=== PATIENT | female | born 1925 | race Caucasian/White ===

== ENCOUNTER 2016-08-30 13:22 | Inpatient (IN) | payer MEDICARE, BC ==
[2016-08-30] MEDS ORDERED: SODIUM CHLORIDE 0.9% 500 ML IV STA (13:34)
[2016-08-30] MEDS: SODIUM CHLORIDE 0.9% 1,000 ML IV STA ×2 (13:48→16:51)
--- NOTE | 2016-08-30 13:56 | ED ---
General Adult HPI - General Chief complaint: Weakness Stated complaint: LETHARGY Time Seen by Provider: 08/30/16 13:34 Source: EMS, RN notes reviewed, old records reviewed Mode of arrival: EMS Limitations: no limitations - History of Present Illness Initial comments: This is an 89-year-old female who ER for evaluation weakness, and transfer from [facility]. Patient's poor strain. Patient is brought in for evaluation of weakness, possible urinary tract infection. Patient is complex and complicated long medical history. Patient states feeling weak ever since waking up this morning no bowel pain, no headache, no nausea vomiting or diarrhea, no fevers - Related Data Home Medications Medication Instructions Recorded Confirmed Atenolol 25 mg PO DAILY 11/25/14 08/30/16 Atorvastatin [Lipitor] 20 mg PO HS 11/25/14 08/30/16 Levothyroxine Sodium [Synthroid] 75 mcg PO DAILY@0600 11/25/14 08/30/16 Risedronate Sodium [Actonel] 150 mg PO Q28D 11/25/14 08/30/16 hydrALAZINE HCL 25 mg PO BID 11/25/14 08/30/16 Dimethicone/Zinc Oxide [Inzo Zinc 1 applic TOPICAL DAILY 08/30/16 08/30/16 Oxide Barrier Cream] Gold Edge Body Powder 1 applic TOPICAL BID 08/30/16 08/30/16 Magnesium Hydroxide [Milk of 2,400 mg PO DAILY PRN 08/30/16 08/30/16 Magnesia] Previous Rx's Medication Instructions Recorded HYDROcodone/APAP 10-325MG [[place] 1 tab PO Q8HR PRN #40 tab 02/28/16 10-325] Zolpidem [Ambien] 5 mg PO HS #30 tab 02/28/16 Allergies Allergy/AdvReac Type Severity Reaction Status Date / Time No Known Allergies Allergy Verified 08/30/16 14:02 Review of Systems ROS Statement: Those systems with pertinent positive or pertinent negative responses have been documented in the HPI. ROS Other: All systems not noted in ROS Statement are negative. Past Medical History Past Medical History: Heart Failure, COPD, Deep Vein Thrombosis (DVT), Eye Disorder, Hearing Disorder / Deafness, Hyperlipidemia, Hypertension, Musculoskeletal Disorder, Pneumonia, Skin Disorder, Thyroid Disorder Additional Past Medical History / Comment(s): 12-28-14 slipped while putting on hip brace- dislocated rt hip. 11-25-14 uti(e coli) and also ecoli in blood. 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, rash from hip brace in the past History of Any Multi-Drug Resistant Organisms: ESBL Date of last positivie culture/infection: 02/29/16 MDRO Source:: URINE KL.PNEUMONIAE URINE Past Surgical History: Hysterectomy, Joint Replacement Additional Past Surgical History / Comment(s): Right Hip replacement and dislocation, wears hip splint, right knee surgery Additional Past Anesthesia/Blood Transfusion Reaction / Comment(s): patient takes a long time to wake up after anesthesia Past Psychological History: No Psychological Hx Reported Smoking Status: Never smoker Past Alcohol Use History: None Reported Past Drug Use History: None Reported - Past Family History Father Family Medical History: Myocardial Infarction ([place]) Additional Family Medical History / Comment(s): heart disease Mother Family Medical History: Hypertension, Myocardial Infarction ([place]) Additional Family Medical History / Comment(s): heart disease General Exam Limitations: no limitations General appearance: alert, in no apparent distress Head exam: Present: atraumatic, normocephalic, normal inspection Eye exam: Present: normal appearance, PERRL, EOMI. Absent: scleral icterus, conjunctival injection, periorbital swelling ENT exam: Present: normal exam, mucous membranes moist Neck exam: Present: normal inspection. Absent: tenderness, meningismus, lymphadenopathy Respiratory exam: Present: normal lung sounds bilaterally. Absent: respiratory distress, wheezes, rales, rhonchi, stridor Cardiovascular Exam: Present: regular rate, normal rhythm, normal heart sounds. Absent: systolic murmur, diastolic murmur, rubs, gallop, clicks GI/Abdominal exam: Present: soft, normal bowel sounds. Absent: distended, tenderness, guarding, rebound, rigid Extremities exam: Present: normal inspection, full ROM, normal capillary refill. Absent: tenderness, pedal edema, joint swelling, calf tenderness Back exam: Present: normal inspection Neurological exam: Present: alert, oriented X3, CN II-XII intact Psychiatric exam: Present: normal affect, normal mood Skin exam: Present: warm, dry, intact, normal color. Absent: rash Course Vital Signs 08/30/16 13:32 Temperature 99.4 F Pulse Rate 71 Respiratory 22 Rate Blood Pressure 190/84 O2 Sat by Pulse 92 L Oximetry - Reevaluation(s) Reevaluation #1: 08/30/16 15:16 patient still somnolent on exam, arousable and answers questions but goes back to sleep when not stimulated Medical Decision Making - Medical Decision Making 89 female ER for evaluation of altered mental status, weakness, hypoxia, patient has a pulmonary edema and infiltrates likely underlying pneumonia, elevated white count we'll start antibiotics - Lab Data Result diagrams: 08/30/16 13:55 08/30/16 13:55 Lab Results 08/30/16 08/30/16 08/30/16 Range/Units 13:55 13:55 13:55 WBC 14.3 H (3.8-10.6) k/uL RBC 4.01 (3.80-5.40) m/uL Hgb 12.5 (11.4-16.0) gm/dL Hct 39.7 (34.0-46.0) % MCV 99.1 (80.0-100.0) fL MCH 31.1 (25.0-35.0) pg MCHC 31.4 (31.0-37.0) g/dL RDW 14.1 (11.5-15.5) % Plt Count 171 (150-450) k/uL Neutrophils % 89 % Lymphocytes % 4 % Monocytes % 6 % Eosinophils % 0 % Basophils % 0 % Neutrophils # 12.7 H (1.3-7.7) k/uL Lymphocytes # 0.6 L (1.0-4.8) k/uL Monocytes # 0.8 (0-1.0) k/uL Eosinophils # 0.0 (0-0.7) k/uL Basophils # 0.0 (0-0.2) k/uL Hypochromasia Moderate PT (9.0-12.0) sec INR (<1.1) APTT (22.0-30.0) sec Sodium 142 (137-145) mmol/L Potassium 4.6 (3.5-5.1) mmol/L Chloride 101 (98-107) mmol/L Carbon Dioxide 34 H (22-30) mmol/L Anion Gap 7 mmol/L BUN 16 (7-17) mg/dL Creatinine 0.90 (0.52-1.04) mg/dL Est GFR (MDRD) Af Amer >60 (>60 ml/min/1.73 sqM) Est GFR (MDRD) Non-Af 59 (>60 ml/min/1.73 sqM) Glucose 137 H (74-99) mg/dL Calcium 9.6 (8.4-10.2) mg/dL Phosphorus 3.2 (2.5-4.5) mg/dL Magnesium 1.8 (1.6-2.3) mg/dL Total Bilirubin 1.0 (0.2-1.3) mg/dL AST 18 (14-36) U/L ALT 18 (9-52) U/L Alkaline Phosphatase 60 (38-126) U/L Total Creatine Kinase <20 L (30-135) U/L CK-MB (CK-2) 0.3 (0.0-2.4) ng/mL CK-MB (CK-2) Rel Index 0.0 Troponin I <0.012 (0.000-0.034) ng/mL Total Protein 7.0 (6.3-8.2) g/dL Albumin 3.5 (3.5-5.0) g/dL TSH 1.500 (0.465-4.680) mIU/L Urine Color Urine Appearance (Clear) Urine pH (5.0-8.0) Ur Specific [place] (1.001-1.035) Urine Protein (Negative) Urine Glucose (UA) (Negative) Urine Ketones (Negative) Urine Blood (Negative) Urine Nitrite (Negative) Urine Bilirubin (Negative) Urine Urobilinogen (<2.0) mg/dL Ur Leukocyte Esterase (Negative) Urine RBC (0-5) /hpf Urine WBC (0-5) /hpf Ur Squamous Epith Cells (0-4) /hpf Urine Bacteria (None) /hpf Urine Mucus (None) /hpf 08/30/16 08/30/16 Range/Units 13:55 13:55 WBC (3.8-10.6) k/uL RBC (3.80-5.40) m/uL Hgb (11.4-16.0) gm/dL Hct (34.0-46.0) % MCV (80.0-100.0) fL MCH (25.0-35.0) pg MCHC (31.0-37.0) g/dL RDW (11.5-15.5) % Plt Count (150-450) k/uL Neutrophils % % Lymphocytes % % Monocytes % % Eosinophils % % Basophils % % Neutrophils # (1.3-7.7) k/uL Lymphocytes # (1.0-4.8) k/uL Monocytes # (0-1.0) k/uL Eosinophils # (0-0.7) k/uL Basophils # (0-0.2) k/uL Hypochromasia PT 10.2 (9.0-12.0) sec INR 1.0 (<1.1) APTT 23.1 (22.0-30.0) sec Sodium (137-145) mmol/L Potassium (3.5-5.1) mmol/L Chloride (98-107) mmol/L Carbon Dioxide (22-30) mmol/L Anion Gap mmol/L BUN (7-17) mg/dL Creatinine (0.52-1.04) mg/dL Est GFR (MDRD) Af Amer (>60 ml/min/1.73 sqM) Est GFR (MDRD) Non-Af (>60 ml/min/1.73 sqM) Glucose (74-99) mg/dL Calcium (8.4-10.2) mg/dL Phosphorus (2.5-4.5) mg/dL Magnesium (1.6-2.3) mg/dL Total Bilirubin (0.2-1.3) mg/dL AST (14-36) U/L ALT (9-52) U/L Alkaline Phosphatase (38-126) U/L Total Creatine Kinase (30-135) U/L CK-MB (CK-2) (0.0-2.4) ng/mL CK-MB (CK-2) Rel Index Troponin I (0.000-0.034) ng/mL Total Protein (6.3-8.2) g/dL Albumin (3.5-5.0) g/dL TSH (0.465-4.680) mIU/L Urine Color Yellow Urine Appearance Clear (Clear) Urine pH 6.5 (5.0-8.0) Ur Specific [place] 1.009 (1.001-1.035) Urine Protein Negative (Negative) Urine Glucose (UA) Negative (Negative) Urine Ketones Negative (Negative) Urine Blood Negative (Negative) Urine Nitrite Negative (Negative) Urine Bilirubin Negative (Negative) Urine Urobilinogen <2.0 (<2.0) mg/dL Ur Leukocyte Esterase Moderate H (Negative) Urine RBC 6 H (0-5) /hpf Urine WBC 4 (0-5) /hpf Ur Squamous Epith Cells <1 (0-4) /hpf Urine Bacteria Moderate H (None) /hpf Urine Mucus Rare H (None) /hpf - Radiology Data Radiology results: report reviewed (Chest x-ray positive for bilateral pulmonary infiltrates increased from prior, pleural effusion), image reviewed Disposition Clinical Impression: Altered mental status, Dehydration, Hypoxia, Pulmonary infiltrates Disposition: ADMITTED IP TO THIS HOSP Condition: Fair Referrals: Mirta Collins MD [Primary Care Provider] - 1-2 days
[2016-08-30 14:11] LABS: Basophils % (A) 0 %; CH 30.7; CHCM 31.1; Eosinophils % (A) 0 %; HCT 39.7 % (34.0-46.0); HDW 3.04; HGB 12.5 gm/dL (11.4-16.0); Hypochromasia Moderate; Luc % (Auto) 1; Lymphocytes # (A) 0.6 k/uL (1.0-4.8); Lymphocytes % (A) 4 %; MCH 31.1 pg (25.0-35.0); MCHC 31.4 g/dL (31.0-37.0); MCV 99.1 fL (80.0-100.0); Mean Platelet Volume 6.8; Monocytes # (A) 0.8 k/uL (0-1.0); Monocytes % (A) 6 %; Neutrophils # (A) 12.7 k/uL (1.3-7.7); Neutrophils % (A) 89 %; RBC 4.01 m/uL (3.80-5.40); RDW 14.1 % (11.5-15.5); WBC 14.3 k/uL (3.8-10.6); WBC (Perox) 12.89
[2016-08-30 14:13] LABS: Appearance,Urine Clear (Clear); Bacteria,Urine Moderate /hpf; Bilirubin,Urine Negative (Negative); Glucose,Urine (UA) Negative (Negative); Ketones,Urine Negative (Negative); Leukocyte Esterase,Urine Moderate (Negative); Mucus,Urine Rare /hpf; Nitrite,Urine Negative (Negative); PH, Urine 6.5 (5.0-8.0); Particle Count 1700; Protein,Urine Negative (Negative); RBC,Urine 6 /hpf (0-5); Specific Gravity,Urine 1.009 (1.001-1.035); Squamous Epithelial Cell,Urine <1 /hpf (0-4); UA Billing (MACRO vs. MICRO) MICRO; Urobilinogen,Urine <2.0 mg/dL (<2.0); WBC,Urine 4 /hpf (0-5)
[2016-08-30 14:20] LABS: ALT 18 U/L (9-52); AST 18 U/L (14-36); Alkaline Phosphatase 60 U/L (38-126); Anion Gap 7 mmol/L; Blood Urea Nitrogen 16 mg/dL (7-17); Calcium 9.6 mg/dL (8.4-10.2); Carbon Dioxide 34 mmol/L (22-30); Chloride 101 mmol/L (98-107); Glucose 137 mg/dL (74-99); Magnesium 1.8 mg/dL (1.6-2.3); Non-African American GFR(MDRD) 59 (>60 ml/min/1.73 sqM); Phosphorous 3.2 mg/dL (2.5-4.5); Potassium 4.6 mmol/L (3.5-5.1); Sodium 142 mmol/L (137-145)
[2016-08-30 14:21] LABS: Partial Thromboplastin Time 23.1 sec (22.0-30.0); Prothrombin Time 10.2 sec (9.0-12.0)
[2016-08-30 14:34] LABS: Creatine Kinase <20 U/L (30-135)
--- NOTE | 2016-08-30 14:40 | XR ---
EXAMINATION TYPE: XR chest 2V DATE OF EXAM: 08/30/2016 2:20 PM COMPARISON: 02/28/2016 HISTORY: Weakness TECHNIQUE: Frontal and lateral views of the chest are obtained. FINDINGS: Heart is enlarged. There is pulmonary vascular congestion. Thoracic aorta is atheromatous. There are chest leads. There are patchy infiltrates in both lungs. IMPRESSION: There are increasing bilateral pulmonary infiltrates compared to last exam. Congestive h eart failure. The possibility of RDS should be considered.
[2016-08-30 14:46] LABS: Creatine Kinase MB 0.3 ng/mL (0.0-2.4); Troponin I <0.012 ng/mL (0.000-0.034)
[2016-08-30] MEDS ORDERED: LEVOFLOXACIN 750MG-D5W PMX 750 MG in DEXTROSE/WATER 1 150ML.BAG IVPB STA (15:12)
[2016-08-30] MEDS ORDERED: PNEUMONIA PROTOCOL UTILIZED 1 EACH MISC PO PRN (15:12)
[2016-08-30] MEDS ORDERED: PIPERACILLIN-TAZOBACTAM 3.375 GM in DEXTROSE/WATER 1 50ML.BAG IVPB STA (15:12)
[2016-08-30] MEDS: IPRATROPIUM-ALBUTEROL 3 ML NEB INHALATION SCH ×2 (15:33→18:41)
[2016-08-30] MEDS ORDERED: MAGNESIUM HYDROXIDE 2,400 MG/10 ML CUP PO PRN (18:32)
[2016-08-30] MEDS ORDERED: HYDROcodone/APAP 10-325MG 1 EACH TAB PO PRN (18:32)
[2016-08-30] MEDS ORDERED: ZOLPIDEM 5 MG TAB ONE (21:00)
[2016-08-31] MEDS: PIPERACILLIN-TAZOBACTAM 3.375 GM in DEXTROSE/WATER 1 50ML.BAG IVPB SCH ×2 (00:23→10:15)
[2016-08-31] MEDS: LEVOTHYROXINE 75 MCG TAB PO SCH (06:00)
[2016-08-31] MEDS: SODIUM CHLORIDE 0.9% 1,000 ML IV SCH ×4 (06:39→22:25)
[2016-08-31] MEDS: IPRATROPIUM-ALBUTEROL 3 ML NEB INHALATION SCH ×4 (07:39→20:48)
[2016-08-31] MEDS: hydrALAZINE HCL 25 MG TAB PO SCH ×3 (08:41→22:23)
[2016-08-31] MEDS: ATORVASTATIN 20 MG TAB PO SCH ×2 (08:41→22:22)
[2016-08-31] MEDS: ATENOLOL 25 MG TAB PO SCH (08:41)
[2016-08-31] MEDS: ENOXAPARIN 40 MG/0.4 ML SYRINGE SQ SCH (08:41)
[2016-08-31] MEDS: ZOLPIDEM 5 MG TAB PO SCH ×2 (08:41→22:22)
[2016-08-31] MEDS: ZINC OXIDE 20% OINT 28.4 GM TUBE TOPICAL SCH (08:42)
--- NOTE | 2016-08-31 10:10 | XR ---
EXAMINATION TYPE: XR chest 2V DATE OF EXAM: 08/31/2016 10:01 AM COMPARISON: 08/30/2016 HISTORY: Follow-up pneumonia FINDINGS: There are bilateral pleural effusions with cardiomegaly and bibasilar infiltrate. There is a diffuse interstitial pattern. Arthropathy of the shoulders and degenerative change of the spine noted. IMPRESSION: 1. Bilateral infiltrate and pleural effusion. Differential includes CHF versus pneumonia.
--- NOTE | 2016-08-31 14:06 | P.HPIM ---
History of Present Illness Chief Complaint: After mental status This is a 89-year-old female with complex past medical history noted below who presented to the emergency room from her snf after she was found confused and her mentation was not at baseline. She was very sleepy for the past few days and her orientation is getting worse. She is usually awake and oriented 3. Her daughter at bedside today. She was evaluated in the emergency room and was found to have evidence of underlying UTI. She is currently admitted to the hospital for further treatment. Her mentation is significantly better today. According to her daughter she is back to normal baseline. Review of Systems Review of system: 14 points review of systems were obtained and were negative except to what were mentioned in the HPI. Past Medical History Past Medical History: Heart Failure, COPD, Deep Vein Thrombosis (DVT), Eye Disorder, Hearing Disorder / Deafness, Hyperlipidemia, Hypertension, Musculoskeletal Disorder, Pneumonia, Skin Disorder, Thyroid Disorder Additional Past Medical History / Comment(s): 12-28-14 slipped while putting on hip brace- dislocated rt hip. 11-25-14 uti(e coli) and also ecoli in blood. 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, rash from hip brace in the past History of Any Multi-Drug Resistant Organisms: ESBL Date of last positivie culture/infection: 02/29/16 MDRO Source:: URINE KL.PNEUMONIAE URINE Past Surgical History: Hysterectomy, Joint Replacement Additional Past Surgical History / Comment(s): Right Hip replacement and dislocation, wears hip splint, right knee surgery Additional Past Anesthesia/Blood Transfusion Reaction / Comment(s): patient takes a long time to wake up after anesthesia Past Psychological History: No Psychological Hx Reported Smoking Status: Unknown if ever smoked Past Alcohol Use History: None Reported Past Drug Use History: None Reported - Past Family History Father Family Medical History: Myocardial Infarction ([place]) Additional Family Medical History / Comment(s): heart disease Mother Family Medical History: Hypertension, Myocardial Infarction ([place]) Additional Family Medical History / Comment(s): heart disease Medications and Allergies Home Medications Medication Instructions Recorded Confirmed Type Atenolol 25 mg PO DAILY 11/25/14 08/30/16 History Atorvastatin [Lipitor] 20 mg PO HS 11/25/14 08/30/16 History Levothyroxine Sodium [Synthroid] 75 mcg PO DAILY@0600 08/08/15 05/13/17 History Risedronate Sodium [Actonel] 150 mg PO Q28D 11/25/14 08/30/16 History hydrALAZINE HCL 25 mg PO BID 11/25/14 08/30/16 History Dimethicone/Zinc Oxide [Inzo Zinc 1 applic TOPICAL DAILY 08/30/16 08/30/16 History Oxide Barrier Cream] Gold Edge Body Powder 1 applic TOPICAL BID 08/30/16 08/30/16 History Magnesium Hydroxide [Milk of 2,400 mg PO DAILY PRN 08/30/16 08/30/16 History Magnesia] Allergies Allergy/AdvReac Type Severity Reaction Status Date / Time No Known Allergies Allergy Verified 08/30/16 14:02 Physical Exam Vitals: Vital Signs Temp Pulse Pulse Resp BP BP Pulse Ox 08/31/16 11:25 68 08/31/16 11:12 68 08/31/16 08:00 68 18 08/31/16 07:53 68 08/31/16 07:40 68 92 L 08/31/16 07:00 97.9 F 68 18 152/67 95 08/30/16 23:00 98.3 F 63 16 116/65 91 L 08/30/16 18:50 67 16 08/30/16 18:42 67 16 08/30/16 18:25 63 18 08/30/16 16:46 99.3 F 63 18 135/64 94 L 08/30/16 16:00 78 16 08/30/16 15:36 99.8 F H 62 16 174/67 97 Intake and Output 08/30/16 08/31/16 08/31/16 22:59 06:59 14:59 Intake Total 350 590 240 Balance 350 590 240 Intake: Intake, IV Titration 350 Amount Sodium Chloride 0.9% 1, 350 000 ml @ 100 mls/hr IV . Q10H [facility] Rx#:[id number] Oral 590 240 Other: Voiding Method Bedside Commode Bedside Commode # Voids 2 3 General: The patient is awake and alert, in no distress Eye: there is normal conjunctiva bilaterally. Neck: The neck is supple, there is no JVD. Cardiovascular: Normal S1-S2, no S3-S4, no murmurs. Respiratory: Lungs clear to auscultation bilaterally Gastrointestinal: Abdomen is soft, nontender Musculoskeletal: There is no pedal edema. There is a large right hip brace in place Neurological:. Speech is normal. Skin: Skin is warm and dry Results CBC & Chem 7: 08/30/16 13:55 08/30/16 13:55 Thrombosis Risk Factor Assmnt - Choose All That Apply Other Risk Factors: Yes Each Risk Factor Represents 3 Points: History of DVT/PE Thrombosis Risk Factor Assessment Total Risk Factor Score: 3 Thrombosis Risk Factor Assessment Level: Moderate Risk Assessment and Plan Plan: #1 urinary tract infection with history of ESBL: Currently on Levaquin. Consult infectious disease. Awaiting urine culture. 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 Continue current regimen. Awaiting urine culture. Repeat lab work in the morning.
[2016-08-31] MEDS ORDERED: LEVOFLOXACIN 750MG-D5W PMX 750 MG in DEXTROSE/WATER 1 150ML.BAG IVPB SCH (16:00)
[2016-09-01] MEDS: LEVOTHYROXINE 75 MCG TAB PO SCH (06:19)
[2016-09-01 08:51] LABS: Basophils % (A) 1 %; CH 30.3; CHCM 30.6; Eosinophils % (A) 1 %; HCT 32.2 % (34.0-46.0); HDW 3.08; HGB 10.1 gm/dL (11.4-16.0); Hypochromasia Moderate; Luc # (Auto) 0.11; Luc % (Auto) 2; Lymphocytes # (A) 0.6 k/uL (1.0-4.8); Lymphocytes % (A) 11 %; MCHC 31.3 g/dL (31.0-37.0); MCV 99.2 fL (80.0-100.0); Mean Platelet Volume 6.9; Monocytes # (A) 0.4 k/uL (0-1.0); Monocytes % (A) 7 %; Neutrophils # (A) 4.7 k/uL (1.3-7.7); Neutrophils % (A) 80 %; RBC 3.25 m/uL (3.80-5.40); RDW 14.1 % (11.5-15.5); WBC 5.9 k/uL (3.8-10.6); WBC (Perox) 5.84
[2016-09-01] MEDS: ENOXAPARIN 40 MG/0.4 ML SYRINGE SQ SCH (08:55)
[2016-09-01] MEDS: hydrALAZINE HCL 25 MG TAB PO SCH ×2 (08:55→20:53)
[2016-09-01] MEDS: ATENOLOL 25 MG TAB PO SCH (08:55)
[2016-09-01] MEDS: ZINC OXIDE 20% OINT 28.4 GM TUBE TOPICAL SCH (08:56)
[2016-09-01 09:17] LABS: Anion Gap 9 mmol/L; Blood Urea Nitrogen 16 mg/dL (7-17); Calcium 8.7 mg/dL (8.4-10.2); Carbon Dioxide 26 mmol/L (22-30); Chloride 107 mmol/L (98-107); Glucose 95 mg/dL (74-99); Non-African American GFR(MDRD) >60 (>60 ml/min/1.73 sqM); Sodium 142 mmol/L (137-145)
[2016-09-01] MEDS: IPRATROPIUM-ALBUTEROL 3 ML NEB INHALATION SCH ×4 (10:00→19:54)
--- NOTE | 2016-09-01 10:37 | P.PN ---
Subjective Patient presented with altered mental status changes and found to have a urinary tract infection. Has a history of ESBL UTIs. Currently on Rocephin. Urine culture growing gram-negative bacilli. Patient awake and alert in bed. Reports feeling better. Denies any chest pain or shortness of breath. Denies any nausea or vomiting. Reports having a bowel movement this morning. Denies any burning with urination. Denies any cough. She reports being on 2 L nasal cannula at home. She is from a correction. Objective - Vital Signs Vital signs: Vital Signs Temp 98.3 F 09/01/16 07:00 Pulse 68 09/01/16 07:00 Resp 18 09/01/16 07:00 BP 179/81 09/01/16 07:00 Pulse Ox 96 09/01/16 07:00 Intake & Output 08/31/16 09/01/16 09/01/16 18:59 06:59 18:59 Intake Total 240 2020 Balance 240 2020 Weight 90.718 kg Intake: Intake, IV Titration 1300 Amount Sodium Chloride 0.9% 1, 1200 000 ml @ 100 mls/hr IV . Q10H [facility] Rx#:[id number] cefTRIAXone 1,000 mg In 100 Sodium Chloride 0.9% 50 ml @ 100 mls/hr IVPB Q24H [facility] Rx#:[id number] Oral 240 720 Other: Voiding Method Bedside Commode Bedside Commode # Voids 3 3 - Exam Head normocephalic Neck supple Lungs clear to auscultation bilaterally no wheezing or crackles Heart regular rate and rhythm S1-S2, no rub or gallop Abdomen is soft nontender nondistended positive bowel sounds no hepatosplenomegaly Extremities no edema Neuro alert and orientated to to her name and place. - Labs CBC & Chem 7: 09/01/16 08:10 09/01/16 08:10 Labs: Abnormal Lab Results - Last 24 Hours (Table) 09/01/16 Range/Units 08:10 RBC 3.25 L (3.80-5.40) m/uL Hgb 10.1 L (11.4-16.0) gm/dL Hct 32.2 L (34.0-46.0) % Lymphocytes # 0.6 L (1.0-4.8) k/uL Microbiology - Last 24 Hours (Table) 08/30/16 15:25 Blood Culture - Preliminary Blood No Growth after 24 hours Assessment and Plan Plan: 1. Altered mental status changes likely related to a metabolic encephalopathy secondary to UTI. 2. UTI: Urine culture growing gram-negative bacilli. 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 Await final urine culture. Infectious disease is following. Continue with IV Rocephin 3. Essential hypertension: Blood pressure elevated this morning. She is receiving her home blood pressure pills also will Hep-Lock IV fluids and have blood pressure repeated 4. Hyperlipidemia 5. Hypothyroidism 6. Morbid obesity 7. Physical therapy consulted to increase activity 8. Bilateral infiltrate and pleural effusion noted on chest x-ray. Patient reports no cough or shortness of breath. Doubt pneumonia. BNP level not significant elevated. No evidence of a CHF exacerbation. At this time Hep- Lock IV fluids. And monitor. I performed an examination of the patient and discussed their management with the physician Service Secretary. I have reviewed the Physician Service Secretary's notes and agree with the documented findings and plan of care
[2016-09-01] MEDS: SODIUM CHLORIDE 0.9% 1,000 ML IV SCH (13:40)
--- NOTE | 2016-09-01 13:59 | CONS ---
DATE OF CONSULTATION: 08/31/2016 REASON FOR CONSULTATION: Urinary tract infection with a history of ESBL, and Klebsiella. HISTORY OF PRESENT ILLNESS: The patient is an 89 -year-old female who is a resident of assisted living with history of recurrent urinary tract infection. She did have Klebsiella pneumoniae ESBL in February 2016 as well as an E. coli. Patient was brought into the ER at [facility] with mental status changes. Apparently the patient was noticed to be weak and tired and lethargic, not taking her food part of the fpc. Patient subsequently was evaluated by the ER physician. The patient noted to have a positive slightly elevated white count and low grade fever. The patient was given a dose of Zosyn and subsequently switched over to Levaquin and admitted to the hospital and ID was consulted for further recommendation regarding antibiotic therapy. At the time of my evaluation this afternoon, the patient is back to her baseline. She knows she is in the hospital. The patient denies having any headache. Denies any chest pain or shortness of breath. Occasional cough. No abdominal pain. No diarrhea. Patient did have incontinence of urine but no other worsening symptoms. The patient apparently with low blood pressure upon arrival to the ER that seems to have improved. REVIEW OF SYSTEMS: CONSTITUTIONAL: Positive for weakness. No fever. EYES: No complaint. ENT: No complaint. RESPIRATORY: No complaint. CARDIOVASCULAR: No complaint. GENITOURINARY: As per HPI. GASTROINTESTINAL: No complaint. MUSCULOSKELETAL: No complaint. INTEGUMENTARY: No complaint. PSYCHOLOGIC: No complaint. ENDOCRINE: No complaint. GASTROINTESTINAL: No complaint. NEUROLOGIC: No complaint. Past medical history is significant for hypertension, hyperlipidemia, pneumonia, hypothyroidism, COPD, DVT , heart failure, history of Guillian [place] syndrome, history of recurrent UTIs with ESBL Klebsiella in February 2016. PAST SURGICAL HISTORY: Hysterectomy and joint replacement. SOCIAL HISTORY: No history of smoking, drinking, or drug use. FAMILY HISTORY: Father with history of PA. Mother with history of hypertension and PA. ALLERGIES: No known drug allergies. Medications currently include the patient is on: 1. DuoNeb. 2. Tenormin. 3. Lipitor. 4. Lovenox. 5. Hydralazine. 6. Levofloxacin. 7. Zinc oxide. 8. Ambien. On examination, blood pressure is 117/58 with a pulse of 58, temperature is 97.9, T-max of 99.8. She is 95% on 4 L nasal cannula. General description is an elderly female, lying in bed in no distress. No tachypnea or accessory muscle of respiration use. HEENT examination shows no pallor or scleral icterus. Oral mucous membranes dry. NECK: Trachea central. There is no thyromegaly. LUNGS: Unlabored breathing. Clear to auscultation anteriorly. No wheeze or crackle. HEART: S1, S2 regular rate and rhythm. ABDOMEN: Soft, no tenderness noted. No guarding or rigidity. EXTREMITIES: No edema of the feet. SKIN EXAMINATION: No rashes. No mass palpable. NEUROLOGICAL: The patient is awake, alert, oriented x3. Mood affect normal. LABS: Hemoglobin is 12.5, white count of 14.3 with a BUN of 16, creatinine 0.90, white count has been normal. Liver enzymes are normal. Urine is positive with moderate leukocyte esterase, only 4 WBC and moderate bacteria. Blood culture currently pending showing gram negative bacilli. DIAGNOSTIC IMPRESSION AND PLAN: The patient admitted to the hospital with mental status changes, slightly multifactorial, likely urinary tract infection from enteric gram-negative in a patient who did have improvement on the Zosyn and Levaquin, could be more likely an E. coli that was sensitive to pathogen and not at an ESBL pathogen. However, risk of resistant pathogen still in this elderly patient with recurrent urinary tract infection. PLAN: 1. Discontinue Levaquin. 2. Will start the patient on Rocephin 1 gram IV piggyback daily. 3. Will follow-up on the clinical condition and cultures to further adjust medications if needed. Thank you for the consultation. Will follow the patient along with you. was present at the bedside. All her questions were answered. SHANNEN
--- NOTE | 2016-09-01 18:48 | PN ---
DATE OF SERVICE: 09/01/2016 REASON FOR FOLLOW-UP: Follow-up is urinary tract infection. INTERVAL HISTORY: The patient is afebrile. She is more awake, she is breathing comfortably. Denies any significant chest pain, cough, no abdominal pain or any diarrhea. On examination, blood pressure is 179/80 with a pulse of 68, temperature 98.3. She is 96% on 2 L nasal cannula. General description is an elderly female lying in bed in no distress. RESPIRATORY SYSTEM: Unlabored breathing. Clear to auscultation anteriorly. HEART: S1, S2, regular rate and rhythm. ABDOMEN: Soft. No tenderness. LABS: White count normal at 5.9. Urine showing gram-negative with ID and sensitivities pending. DIAGNOSTIC IMPRESSION AND PLAN: Patient admitted to hospital with mental status changes with possible complaint of urinary tract infection. Urine showing a gram-negative with a previous history of ESBL, though she responded to Rocephin, hence that will be continued, waiting for the final ID of the pathogen to determine discharge antibiotics. Continue supportive care. SHANNEN
[2016-09-01 20:02] LABS: Appearance,Urine Clear (Clear); Bacteria,Urine Rare /hpf; Bilirubin,Urine Negative (Negative); Glucose,Urine (UA) Negative (Negative); Ketones,Urine Negative (Negative); Leukocyte Esterase,Urine Moderate (Negative); Mucus,Urine Rare /hpf; Nitrite,Urine Negative (Negative); PH, Urine 6.5 (5.0-8.0); Particle Count 1861; Protein,Urine Trace (Negative); RBC,Urine 4 /hpf (0-5); UA Billing (MACRO vs. MICRO) MICRO; Urobilinogen,Urine <2.0 mg/dL (<2.0); WBC,Urine 9 /hpf (0-5)
[2016-09-01] MEDS: ATORVASTATIN 20 MG TAB PO SCH (20:53)
[2016-09-02] MEDS: ZOLPIDEM 5 MG TAB PO SCH ×2 (00:29→20:45)
[2016-09-02] MEDS: LEVOTHYROXINE 75 MCG TAB PO SCH (06:29)
[2016-09-02] MEDS: hydrALAZINE HCL 25 MG TAB PO SCH ×2 (07:24→20:45)
[2016-09-02] MEDS: ATENOLOL 25 MG TAB PO SCH (07:25)
[2016-09-02] MEDS: ENOXAPARIN 40 MG/0.4 ML SYRINGE SQ SCH (07:25)
[2016-09-02] MEDS: ZINC OXIDE 20% OINT 28.4 GM TUBE TOPICAL SCH (07:25)
[2016-09-02 09:28] LABS: Basophils % (A) 0 %; CH 30.3; CHCM 30.6; Eosinophils # (A) 0.1 k/uL (0-0.7); Eosinophils % (A) 1 %; HCT 34.1 % (34.0-46.0); HDW 3.04; HGB 10.3 gm/dL (11.4-16.0); Hypochromasia Moderate; Luc # (Auto) 0.07; Luc % (Auto) 1; Lymphocytes # (A) 0.6 k/uL (1.0-4.8); Lymphocytes % (A) 10 %; MCH 30.1 pg (25.0-35.0); MCHC 30.3 g/dL (31.0-37.0); MCV 99.4 fL (80.0-100.0); Mean Platelet Volume 7.2; Monocytes # (A) 0.3 k/uL (0-1.0); Monocytes % (A) 4 %; Neutrophils % (A) 84 %; RBC 3.43 m/uL (3.80-5.40); RDW 14.2 % (11.5-15.5); WBC (Perox) 5.62
[2016-09-02 09:42] LABS: Anion Gap 6 mmol/L; Blood Urea Nitrogen 13 mg/dL (7-17); Calcium 8.9 mg/dL (8.4-10.2); Carbon Dioxide 30 mmol/L (22-30); Chloride 107 mmol/L (98-107); Glucose 133 mg/dL (74-99); Non-African American GFR(MDRD) >60 (>60 ml/min/1.73 sqM); Sodium 143 mmol/L (137-145)
[2016-09-02] MEDS: IPRATROPIUM-ALBUTEROL 3 ML NEB INHALATION SCH ×4 (09:44→20:44)
[2016-09-02] MEDS: ERTAPENEM 1 GM in SODIUM CHLORIDE 0.9% 50 ML IVPB SCH (11:39)
--- NOTE | 2016-09-02 13:38 | P.PN ---
Subjective Patient presented with altered mental status changes and found to have a urinary tract infection. Has a history of ESBL UTIs. Currently on Ertapenem per infectious disease recommendation. Urine culture growing gram-negative bacilli, Enterobacter Aerogens Patient awake and alert in bed. Reports feeling better. Denies any chest pain or shortness of breath. Denies any nausea or vomiting. Reports having a bowel movement this morning. Denies any burning with urination. Denies any cough. She reports being on 2 L nasal cannula at home. She is from a residential. Objective - Vital Signs Vital signs: Vital Signs Temp 98.3 F 09/02/16 07:00 Pulse 76 09/02/16 12:06 Resp 20 09/02/16 07:58 BP 151/65 09/02/16 07:00 Pulse Ox 92 L 09/02/16 07:00 Intake & Output 09/01/16 09/02/16 09/02/16 18:59 06:59 18:59 Intake Total 400 540 240 Balance 400 540 240 Weight 104 kg Intake: Intake, IV Titration 400 Amount Sodium Chloride 0.9% 1, 400 000 ml @ 100 mls/hr IV . Q10H [facility] Rx#:[id number] Oral 540 240 Other: Voiding Method Bedside Commode Bedside Commode Bedside Commode # Voids 2 1 2 - Exam In general patient is alert and oriented in no apparent distress HEENT head normocephalic and atraumatic Neck is supple no JVD no goiter no lymphadenopathy Chest exam reveals a few scattered crackles no wheezing Cardiac exam reveals regular heart sounds no gallops no murmurs Abdomen is soft nontender no organomegaly Extremity exam reveals no edema no cyanosis or clubbing - Labs CBC & Chem 7: 09/02/16 08:37 09/02/16 08:37 Labs: Abnormal Lab Results - Last 24 Hours (Table) 09/01/16 09/02/16 09/02/16 Range/Units 19:45 08:37 08:37 RBC 3.43 L (3.80-5.40) m/uL Hgb 10.3 L (11.4-16.0) gm/dL MCHC 30.3 L (31.0-37.0) g/dL Lymphocytes # 0.6 L (1.0-4.8) k/uL Glucose 133 H (74-99) mg/dL Urine Protein Trace H (Negative) Ur Leukocyte Esterase Moderate H (Negative) Urine WBC 9 H (0-5) /hpf Urine Bacteria Rare H (None) /hpf Urine Mucus Rare H (None) /hpf Microbiology - Last 24 Hours (Table) 09/01/16 19:45 Urine Culture - Preliminary Urine,Catheterized 08/30/16 13:55 Urine Culture - Final Urine,Catheterized Enterobacter aerogenes 08/30/16 15:25 Blood Culture - Preliminary Blood No Growth after 48 hours Assessment and Plan Plan: #1 urinary tract infection with history of ESBL: Currently on Ertapenem. Consult infectious disease. 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
--- NOTE | 2016-09-02 16:53 | PN ---
DATE OF SERVICE: 09/02/2016 REASON FOR FOLLOWUP: Urinary tract infection. INTERVAL HISTORY: The patient is afebrile. She is currently breathing comfortably. Denies significant chest pain or cough. No abdominal pain or any diarrhea. On examination, blood pressure 151/65 with a pulse of 66, temperature 98.3. She is 92% on 2 L nasal cannula. General description is an elderly female lying in bed in no distress. RESPIRATORY SYSTEM: Unlabored breathing. Clear to auscultation anteriorly. HEART: S1, S2. Regular rate and rhythm. ABDOMEN: Soft. No tenderness. LABS: Hemoglobin 10.3, white count 6.0 with a BUN of 13, creatinine 0.85. We did take another UA yesterday with straight catheter which shows moderate leukocyte esterase and some pyuria. DIAGNOSTIC IMPRESSION AND PLAN: Patient with urinary tract infection. Urine with [id number]-qsyrcdman enterobacter. Antibiotics were adjusted to Invanz 1 gram daily. That will be continued while waiting for the repeat culture to finalize. Will treat it more likely as a mild cystitis with a 3-day course, which should be enough, especially if the repeat urine cultures are negative, and will avoid a PICC line for outpatient IV antibiotic therapy.
[2016-09-02] MEDS: ATORVASTATIN 20 MG TAB PO SCH (20:45)
[2016-09-03] MEDS: LEVOTHYROXINE 75 MCG TAB PO SCH (06:47)
[2016-09-03] MEDS: IPRATROPIUM-ALBUTEROL 3 ML NEB INHALATION SCH ×4 (07:41→19:37)
[2016-09-03] MEDS: ERTAPENEM 1 GM in SODIUM CHLORIDE 0.9% 50 ML IVPB SCH (08:07)
[2016-09-03] MEDS: hydrALAZINE HCL 25 MG TAB PO SCH ×2 (08:07→22:03)
[2016-09-03] MEDS: ATENOLOL 25 MG TAB PO SCH (08:07)
[2016-09-03] MEDS: ZINC OXIDE 20% OINT 28.4 GM TUBE TOPICAL SCH (08:08)
[2016-09-03] MEDS: ENOXAPARIN 40 MG/0.4 ML SYRINGE SQ SCH (08:08)
[2016-09-03 09:34] LABS: Basophils % (A) 1 %; CH 30.1; Eosinophils # (A) 0.1 k/uL (0-0.7); Eosinophils % (A) 2 %; HCT 33.7 % (34.0-46.0); HDW 2.88; HGB 10.2 gm/dL (11.4-16.0); Hypochromasia Marked; Luc # (Auto) 0.07; Luc % (Auto) 2; Lymphocytes # (A) 0.8 k/uL (1.0-4.8); Lymphocytes % (A) 15 %; MCH 30.4 pg (25.0-35.0); MCHC 30.2 g/dL (31.0-37.0); MCV 100.6 fL (80.0-100.0); Macrocytosis Slight; Mean Platelet Volume 6.9; Monocytes # (A) 0.3 k/uL (0-1.0); Monocytes % (A) 5 %; Neutrophils # (A) 3.9 k/uL (1.3-7.7); Neutrophils % (A) 76 %; RBC 3.35 m/uL (3.80-5.40); RDW 14.5 % (11.5-15.5); WBC 5.1 k/uL (3.8-10.6); WBC (Perox) 5.27
[2016-09-03 10:09] LABS: Anion Gap 6 mmol/L; Blood Urea Nitrogen 13 mg/dL (7-17); Calcium 9.1 mg/dL (8.4-10.2); Carbon Dioxide 29 mmol/L (22-30); Chloride 107 mmol/L (98-107); Glucose 95 mg/dL (74-99); Non-African American GFR(MDRD) >60 (>60 ml/min/1.73 sqM); Potassium 4.3 mmol/L (3.5-5.1); Sodium 142 mmol/L (137-145)
--- NOTE | 2016-09-03 11:19 | XR ---
EXAMINATION TYPE: XR chest 2V DATE OF EXAM: 09/03/2016 11:02 AM COMPARISON: Chest x-ray from 3 days ago. HISTORY: Infiltrates progress study. TECHNIQUE: Frontal and lateral views of the chest are obtained. FINDINGS: Exam suboptimal secondary to patient's large body habitus. Cardiac silhouette size is stab le and mildly enlarged with atherosclerotic thoracic aorta. There are persistent bilateral perihilar opacities. No large pleural effusion or pneumothorax is seen currently. Degenerative change both shou lders at the glenohumeral joints is noted. IMPRESSION: Persistent bilateral perihilar edema and/or infiltrates and cardiomegaly. Favor CHF exac erbation over central multifocal pneumonia.
--- NOTE | 2016-09-03 15:34 | PN ---
DATE OF SERVICE: 09/03/2016 Reason for follow-up is gram-negative urinary tract infection with Enterobacter. INTERVAL HISTORY: The patient is afebrile. She is feeling better. Breathing comfortably. Denies significant chest pain. Occasional cough. No abdominal pain. On examination, blood pressure 155/55 with a pulse of 69, temperature 98.8. She is 94% on 3 liters nasal cannula. General description is an elderly female, lying in bed in no distress. RESPIRATORY SYSTEM: Unlabored breathing. Decreased breath sounds at the base. No wheeze. HEART: S1, S2. Regular rate and rhythm. ABDOMEN: Soft. No tenderness. LABS: Hemoglobin 10.2, white count 5.1. BUN of 13, creatinine 0.84. Repeat urine culture so far negative. DIAGNOSTIC IMPRESSION AND PLAN: Patient with Enterobacter aeruginosa urinary tract infection with resistant pathogen. She is currently on Invanz and that will be continued while waiting for the repeat to be finalized. If the repeat urine is repeated would recommend discontinuation of the Invanz and no antibiotic on discharge. Family present at beside. Their questions were answered.
--- NOTE | 2016-09-03 17:55 | P.PN ---
Subjective Patient presented with altered mental status changes and found to have a urinary tract infection. Has a history of ESBL UTIs. Currently on Ertapenem per infectious disease recommendation. Urine culture growing gram-negative bacilli, Enterobacter Aerogens Patient awake and alert in bed. Reports feeling better. Denies any chest pain or shortness of breath. Denies any nausea or vomiting. Reports having a bowel movement this morning. Denies any burning with urination. Denies any cough. She reports being on 2 L nasal cannula at home. She is from a longterm. Objective - Vital Signs Vital signs: Vital Signs Temp 98.8 F 09/03/16 07:00 Pulse 69 09/03/16 15:01 Resp 20 09/03/16 15:01 BP 176/72 09/03/16 15:00 Pulse Ox 93 L 09/03/16 15:00 Intake & Output 09/02/16 09/03/16 09/03/16 18:59 06:59 18:59 Intake Total 240 480 240 Balance 240 480 240 Weight 103 kg Intake: Oral 240 480 240 Other: Voiding Method Bedside Commode Bedside Commode Bedside Commode # Voids 2 2 2 # Bowel Movements 1 - Exam In general patient is alert and oriented in no apparent distress HEENT head normocephalic and atraumatic Neck is supple no JVD no goiter no lymphadenopathy Chest exam reveals a few scattered crackles no wheezing Cardiac exam reveals regular heart sounds no gallops no murmurs Abdomen is soft nontender no organomegaly Extremity exam reveals no edema no cyanosis or clubbing - Labs CBC & Chem 7: 09/03/16 08:17 09/03/16 08:17 Labs: Abnormal Lab Results - Last 24 Hours (Table) 09/03/16 Range/Units 08:17 RBC 3.35 L (3.80-5.40) m/uL Hgb 10.2 L (11.4-16.0) gm/dL Hct 33.7 L (34.0-46.0) % MCV 100.6 H (80.0-100.0) fL MCHC 30.2 L (31.0-37.0) g/dL Lymphocytes # 0.8 L (1.0-4.8) k/uL Microbiology - Last 24 Hours (Table) 08/30/16 15:25 Blood Culture - Preliminary Blood No Growth after 96 hours 09/01/16 19:45 Urine Culture - Final Urine,Catheterized Assessment and Plan Plan: #1 urinary tract infection with history of ESBL: Currently on Ertapenem. Consult infectious disease. 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 improving gradually
[2016-09-03] MEDS: ATORVASTATIN 20 MG TAB PO SCH (22:04)
[2016-09-03] MEDS: ZOLPIDEM 5 MG TAB PO SCH (22:08)
[2016-09-04] MEDS: LEVOTHYROXINE 75 MCG TAB PO SCH (05:19)
[2016-09-04 08:10] LABS: Basophils % (A) 1 %; CH 30.1; Eosinophils # (A) 0.1 k/uL (0-0.7); Eosinophils % (A) 3 %; HCT 34.9 % (34.0-46.0); HGB 10.5 gm/dL (11.4-16.0); Hypochromasia Marked; Luc # (Auto) 0.08; Luc % (Auto) 2; Lymphocytes # (A) 0.8 k/uL (1.0-4.8); Lymphocytes % (A) 16 %; MCH 30.4 pg (25.0-35.0); MCHC 30.1 g/dL (31.0-37.0); MCV 100.9 fL (80.0-100.0); Macrocytosis Slight; Mean Platelet Volume 7.3; Monocytes # (A) 0.2 k/uL (0-1.0); Monocytes % (A) 5 %; Neutrophils # (A) 3.7 k/uL (1.3-7.7); Neutrophils % (A) 74 %; RBC 3.45 m/uL (3.80-5.40); RDW 14.4 % (11.5-15.5); WBC (Perox) 5.34
[2016-09-04 08:19] LABS: ALT 20 U/L (9-52); AST 19 U/L (14-36); Alkaline Phosphatase 48 U/L (38-126); Anion Gap 6 mmol/L; Blood Urea Nitrogen 14 mg/dL (7-17); Calcium 9.1 mg/dL (8.4-10.2); Carbon Dioxide 30 mmol/L (22-30); Chloride 105 mmol/L (98-107); Glucose 95 mg/dL (74-99); Non-African American GFR(MDRD) >60 (>60 ml/min/1.73 sqM); Potassium 4.2 mmol/L (3.5-5.1); Sodium 141 mmol/L (137-145); Total Bilirubin 0.7 mg/dL (0.2-1.3); Total Protein 6.3 g/dL (6.3-8.2)
[2016-09-04] MEDS: ENOXAPARIN 40 MG/0.4 ML SYRINGE SQ SCH (08:39)
[2016-09-04] MEDS: ERTAPENEM 1 GM in SODIUM CHLORIDE 0.9% 50 ML IVPB SCH (08:39)
[2016-09-04] MEDS: hydrALAZINE HCL 25 MG TAB PO SCH ×2 (08:39→21:52)
[2016-09-04] MEDS: ZINC OXIDE 20% OINT 28.4 GM TUBE TOPICAL SCH (08:39)
[2016-09-04] MEDS: ATENOLOL 25 MG TAB PO SCH (08:40)
[2016-09-04] MEDS: IPRATROPIUM-ALBUTEROL 3 ML NEB INHALATION SCH ×4 (08:45→21:07)
--- NOTE | 2016-09-04 11:37 | ECHOF ---
Referral Reason:check EF MEASUREMENTS -------- HEIGHT: 165.1 cm WEIGHT: 105.7 kg BP: 133/68 RVIDd: 2.9 cm (< 3.3) IVSd: 1.7 cm (0.6 - 1.1) LVIDd: 3.3 cm (3.9 - 5.3) LVPWd: 1.4 cm (0.6 - 1.1) IVSs: 2.0 cm LVIDs: 1.7 cm LVPWs: 1.7 cm LAESV Index (A-L): 16.40 ml/m Ao Diam: 2.7 cm (2.0 - 3.7) AV Cusp: 0.8 cm (1.5 - 2.6) LA Diam: 3.0 cm (2.7 - 3.8) MV EXCURSION: 6.638 mm (> 18.000) MV EF SLOPE: 27 mm/s (70 - 150) EPSS: 0.9 cm MV E Ruddy: 1.29 m/s MV DecT: 308 ms MV A Ruddy: 1.45 m/s MV E/A Ratio: 0.89 AV maxP.49 mmHg AV meanP.32 mmHg RAP: 5.00 mmHg RVSP: 72.99 mmHg FINDINGS -------- Sinus rhythm. This was a technically adequate study. There is moderate concentric left ventricular hypertrophy. Overall left ventricular systolic function is normal with, an EF between 60 - 65 %. The right ventricle is normal in size and function. Normal LA size by volume 22+/-6 ml/m2. RA appears enlarged. There is no evidence of aortic regurgitation. Moderate aortic stenosis with peak/mean pressure gradient of 31.49mmHg / 19.32mmHg, the aortic valve area by continuity equation is 1.3cm. The mitral valve leaflets are mildly thickened. Mild mitral annular calcification present. There is trace to mild mitral regurgitation. Wglx-or-cbpuhujw tricuspid regurgitation present. There is severe pulmonary hypertension. The right ventricular systolic pressure, as measured by Doppler, is 72.99mmHg. The pulmonic valve was not well visualized. The aortic root size is normal. Echo free space may represent effusion or a pericardial fat pad. There is no pericardial effusion. CONCLUSIONS -------- 1. Sinus rhythm. 2. Lcru-qf-fhvufztx tricuspid regurgitation present. 3. There is severe pulmonary hypertension. 4. The right ventricular systolic pressure, as measured by Doppler, is 72.99mmHg. 5. The pulmonic valve was not well visualized. 6. The aortic root size is normal. 7. Echo free space may represent effusion or a pericardial fat pad. 8. There is no pericardial effusion. 9. There is moderate concentric left ventricular hypertrophy. 10. Overall left ventricular systolic function is normal with, an EF between 60 - 65 %. 11. Normal LA size by volume 22+/-6 ml/m2. 12. RA appears enlarged. 13. Moderate aortic stenosis with peak/mean pressure gradient of 31.49mmHg / 19.32mmHg, the aortic valve area by continuity equation is 1.3cm. 14. The mitral valve leaflets are mildly thickened. 15. Mild mitral annular calcification present. 16. There is trace to mild mitral regurgitation. REMOTE OPERATIONS PRODUCER: Salvador Ch RDCS
--- NOTE | 2016-09-04 11:39 | P.PN ---
Subjective Patient presented with altered mental status changes and found to have a urinary tract infection. Has a history of ESBL UTIs. Currently on Rocephin. Urine culture growing gram-negative bacilli. Patient awake and alert in bed. Reports feeling better. Denies any chest pain or shortness of breath. Denies any nausea or vomiting. Reports having a bowel movement this morning. Denies any burning with urination. Denies any cough. She reports being on 2 L nasal cannula at home. She is from a custodial. 09/04/2016 patient is showing improvement. Denies any chest pain or shortness breath. Denies any nausea or vomiting. Has been having regular bowel movements. Denies any difficulty urinating Objective - Vital Signs Vital signs: Vital Signs Temp 98.4 F 09/04/16 07:00 Pulse 63 09/04/16 07:00 Resp 18 09/04/16 07:00 BP 133/68 09/04/16 07:00 Pulse Ox 90 L 09/04/16 07:00 Intake & Output 09/03/16 09/04/16 09/04/16 18:59 06:59 18:59 Intake Total 240 530 Balance 240 530 Weight 106 kg Intake: Oral 240 530 Other: Voiding Method Bedside Commode Bedside Commode Bedside Commode # Voids 2 2 # Bowel Movements 1 - Exam Head normocephalic Neck supple Lungs faint crackle in the left lower lobe Heart regular rate and rhythm S1-S2, no rub or gallop Abdomen is soft nontender nondistended positive bowel sounds no hepatosplenomegaly Extremities no edema Neuro alert and orientated to to her name and place. - Labs CBC & Chem 7: 09/04/16 07:36 09/04/16 07:36 Labs: Abnormal Lab Results - Last 24 Hours (Table) 09/04/16 09/04/16 Range/Units 07:36 07:36 RBC 3.45 L (3.80-5.40) m/uL Hgb 10.5 L (11.4-16.0) gm/dL MCV 100.9 H (80.0-100.0) fL MCHC 30.1 L (31.0-37.0) g/dL Lymphocytes # 0.8 L (1.0-4.8) k/uL Albumin 2.9 L (3.5-5.0) g/dL Microbiology - Last 24 Hours (Table) 08/30/16 15:25 Blood Culture - Preliminary Blood No Growth after 96 hours Assessment and Plan Plan: 1. Altered mental status changes likely related to a metabolic encephalopathy secondary to UTI. 2. UTI: Urine culture growing Enterobacter aeruginosa's. 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 Infectious disease is following. Repeat urine culture is negative. Will await further infectious disease recommendations anticipating discharge back to custodial without antibiotics 3. Essential hypertension: Blood pressure stable 4. Hyperlipidemia 5. Hypothyroidism 6. Morbid obesity 7. Physical therapy consulted to increase activity 8. Check echo to evaluate ejection fraction Anticipate discharge back to custodial tomorrow I performed an examination of the patient and discussed their management with the physician Automotive Brake Technician. I have reviewed the Physician Automotive Brake Technician's notes and agree with the documented findings and plan of care
--- NOTE | 2016-09-04 16:51 | PN ---
DATE OF SERVICE: 09/04/2016 REASON FOR FOLLOWUP: Urinary tract infection. INTERVAL HISTORY: The patient is afebrile. She is breathing comfortably. Denies significant chest pain. Some shortness of breath but no cough, no abdominal pain, no nausea, vomiting or any diarrhea. On examination, blood pressure is 133/68 with a pulse of 63, temperature 98.4. She is 90% on 3 L nasal cannula. General description is an elderly female lying in bed in no distress. RESPIRATORY SYSTEM: Unlabored breathing. Clear to auscultation anteriorly. HEART: S1, S2. Regular rate and rhythm. ABDOMEN: Soft. No tenderness. LABS: Hemoglobin is 10.5, white count 5.0, BUN of 14, creatinine 0.82. Blood cultures repeat are negative. DIAGNOSTIC IMPRESSION AND PLAN: Patient with positive urine culture with enterobacter with a question of possible colonization versus a mild urinary tract infection such as cystitis, for which the patient received about 3 days of Invanz. That should be enough. Plan for no antibiotic on discharge. Continue supportive care.
[2016-09-04] MEDS: ATORVASTATIN 20 MG TAB PO SCH (21:52)
[2016-09-04] MEDS: ZOLPIDEM 5 MG TAB PO SCH (21:52)
[2016-09-05] MEDS: LEVOTHYROXINE 75 MCG TAB PO SCH (05:32)
[2016-09-05] MEDS: IPRATROPIUM-ALBUTEROL 3 ML NEB INHALATION SCH ×4 (07:18→19:05)
[2016-09-05] MEDS: ERTAPENEM 1 GM in SODIUM CHLORIDE 0.9% 50 ML IVPB SCH (08:34)
[2016-09-05] MEDS: ENOXAPARIN 40 MG/0.4 ML SYRINGE SQ SCH (08:34)
[2016-09-05] MEDS: ZINC OXIDE 20% OINT 28.4 GM TUBE TOPICAL SCH (08:35)
[2016-09-05] MEDS: ATENOLOL 25 MG TAB PO SCH (08:35)
[2016-09-05] MEDS: hydrALAZINE HCL 25 MG TAB PO SCH ×2 (08:35→19:59)
[2016-09-05 08:50] LABS: Basophils % (A) 1 %; CH 29.9; CHCM 30.2; Eosinophils # (A) 0.1 k/uL (0-0.7); Eosinophils % (A) 3 %; HDW 2.98; HGB 9.8 gm/dL (11.4-16.0); Hypochromasia Marked; Luc # (Auto) 0.09; Luc % (Auto) 2; Lymphocytes # (A) 0.9 k/uL (1.0-4.8); Lymphocytes % (A) 21 %; MCH 30.4 pg (25.0-35.0); MCHC 30.6 g/dL (31.0-37.0); MCV 99.4 fL (80.0-100.0); Macrocytosis Slight; Mean Platelet Volume 7.1; Monocytes # (A) 0.2 k/uL (0-1.0); Monocytes % (A) 6 %; Neutrophils # (A) 2.9 k/uL (1.3-7.7); Neutrophils % (A) 68 %; RBC 3.21 m/uL (3.80-5.40); RDW 14.6 % (11.5-15.5); WBC 4.2 k/uL (3.8-10.6); WBC (Perox) 4.37
[2016-09-05 09:10] LABS: Anion Gap 5 mmol/L; Blood Urea Nitrogen 13 mg/dL (7-17); Calcium 8.8 mg/dL (8.4-10.2); Carbon Dioxide 33 mmol/L (22-30); Chloride 104 mmol/L (98-107); Glucose 90 mg/dL (74-99); Non-African American GFR(MDRD) >60 (>60 ml/min/1.73 sqM); Potassium 4.1 mmol/L (3.5-5.1); Sodium 142 mmol/L (137-145)
[2016-09-05 11:31] VITALS: BMI 38.7
--- NOTE | 2016-09-05 15:35 | P.PN ---
Subjective Patient presented with altered mental status changes and found to have a urinary tract infection. Has a history of ESBL UTIs. Currently on Rocephin. Urine culture growing gram-negative bacilli. Patient awake and alert in bed. Reports feeling better. Denies any chest pain or shortness of breath. Denies any nausea or vomiting. Reports having a bowel movement this morning. Denies any burning with urination. Denies any cough. She reports being on 2 L nasal cannula at home. She is from a [facility]. 09/04/2016 patient is showing improvement. Denies any chest pain or shortness breath. Denies any nausea or vomiting. Has been having regular bowel movements. Denies any difficulty urinating 09/05/2016 patient sitting up at bedside chair. Denies any shortness of breath or chest pain. Denies any nausea or vomiting. She reports having bowel movements. Denies any difficulty urinating. Physical therapy has evaluated patient she is needing two-person assist in the recommending ECF placement. Patient would prefer to go home. Her echo from today showed severe pulmonary hypertension and moderate aortic stenosis with an EF of 60-65% cardiology will be consulted Objective - Vital Signs Vital signs: Vital Signs Temp 97.4 F L 09/05/16 07:00 Pulse 61 09/05/16 07:00 Resp 18 09/05/16 07:00 BP 156/80 09/05/16 12:35 Pulse Ox 94 L 09/05/16 07:18 Intake & Output 09/04/16 09/05/16 09/05/16 18:59 06:59 18:59 Intake Total 530 Balance 530 Weight 105.5 kg 105.5 kg Intake: Oral 530 Other: Voiding Method Bedside Commode Bedside Commode Bedside Commode # Voids 1 2 1 # Bowel Movements 1 - Exam Head normocephalic Neck supple Lungs diminished no crackles or wheezing Heart regular rate and rhythm S1-S2, no rub or gallop positive murmur Abdomen is soft nontender nondistended positive bowel sounds no hepatosplenomegaly Extremities no edema Neuro alert and orientated to to her name and place. - Labs CBC & Chem 7: 09/05/16 08:17 09/05/16 08:17 Labs: Abnormal Lab Results - Last 24 Hours (Table) 09/05/16 09/05/16 Range/Units 08:17 08:17 RBC 3.21 L (3.80-5.40) m/uL Hgb 9.8 L (11.4-16.0) gm/dL Hct 32.0 L (34.0-46.0) % MCHC 30.6 L (31.0-37.0) g/dL Lymphocytes # 0.9 L (1.0-4.8) k/uL Carbon Dioxide 33 H (22-30) mmol/L Microbiology - Last 24 Hours (Table) 08/30/16 15:25 Blood Culture - Preliminary Blood No Growth after 120 hours Assessment and Plan Plan: 1. Altered mental status changes likely related to a metabolic encephalopathy secondary to UTI. 2. UTI: Urine culture growing Enterobacter aeruginosa's. 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 Infectious disease is following. Repeat urine culture is negative. Infectious disease recommends no antibiotics at time of discharge. Questionable possible colonization in the urine 3. Essential hypertension: Blood pressure elevated this morning. Did show improvement after blood pressure medications given 4. Hyperlipidemia 5. Hypothyroidism 6. Morbid obesity 7. Physical therapy consulted to increase activity 8. Severe pulmonary hypertension and moderate aortic stenosis noted on echo. This appears to be new for patient. We'll consult cardiology. Also note EF of 60-65%. 9. Anemia no bleeding reported. Check iron studies and B12 level I performed an examination of the patient and discussed their management with the physician Desk Assistant. I have reviewed the Physician Desk Assistant's notes and agree with the documented findings and plan of care
--- NOTE | 2016-09-05 15:52 | PN ---
DATE OF SERVICE: 09/05/2016 REASON FOR FOLLOWUP: Urinary tract infection, enterobacter. INTERVAL HISTORY: The patient is afebrile. She is feeling better, breathing comfortably. Denies significant chest pain or cough. No abdominal pain or any diarrhea. On examination, blood pressure is 153/78 with a pulse of 59, temperature 97.9. She is 95% on 3 L nasal cannula. General description is an elderly female up in the chair in no distress. RESPIRATORY SYSTEM: Unlabored breathing. Clear to auscultation anteriorly. HEART: S1, S2. Regular rate and rhythm. ABDOMEN: Soft. No tenderness. LABS: Hemoglobin is 9.8, white count 4.2 with a BUN of 13, creatinine 0.88. DIAGNOSTIC IMPRESSION AND PLAN: Patient with a positive urine culture for Enterobacter aeruginosa with a question of mild urinary tract infection/cystitis versus a chronic condition. Follow-up blood culture from 08/30 has been negative so far. The patient received about 4 doses on Invanz. That should be enough. Will go ahead and discontinue the Invanz and watch the patient closely off antibiotic therapy. Continue supportive care.
[2016-09-05 16:10] LABS: % Iron Saturation 14.3 % (20-50)
[2016-09-05] MEDS: ATORVASTATIN 20 MG TAB PO SCH (19:59)
[2016-09-05] MEDS: ZOLPIDEM 5 MG TAB PO SCH (21:28)
[2016-09-06] MEDS: LEVOTHYROXINE 75 MCG TAB PO SCH (05:54)
[2016-09-06] MEDS: hydrALAZINE HCL 25 MG TAB PO SCH ×2 (10:02→22:13)
[2016-09-06] MEDS: ENOXAPARIN 40 MG/0.4 ML SYRINGE SQ SCH (10:02)
[2016-09-06] MEDS: ERTAPENEM 1 GM in SODIUM CHLORIDE 0.9% 50 ML IVPB SCH (10:02)
[2016-09-06] MEDS: ATENOLOL 25 MG TAB PO SCH (10:02)
[2016-09-06] MEDS: ZINC OXIDE 20% OINT 28.4 GM TUBE TOPICAL SCH (10:03)
--- NOTE | 2016-09-06 10:52 | P.PN ---
Subjective 89-year-old female seen and evaluated resting comfortably in bed. Patient denies any nausea vomiting chest pain or shortness of breath. Patient has a brace on the right hip which the patient states she wears 24 7 after having chronic dislocated right hip. She reports it takes the assist of 2 to transfer patient from the bed to a bedside commode must wear her brace at all times. Patient did have an echocardiogram it did show severe pulmonary hypertension with moderate aortic stenosis EF 60-65 cardiology has been consult The discharge plan is in progress. Physical therapy indicates the patient would benefit from an ECF placement. Patients being treated for acute metabolic encephalopathy secondary to a UTI present on admission Objective - Vital Signs Vital signs: Vital Signs Temp 97 F L 09/06/16 07:00 Pulse 61 09/06/16 07:00 Resp 16 09/06/16 07:00 BP 147/79 09/06/16 07:00 Pulse Ox 92 L 09/06/16 07:00 Intake & Output 09/05/16 09/06/16 09/06/16 18:59 06:59 18:59 Intake Total 240 Balance 240 Weight 105.5 kg Intake: Oral 240 Other: Voiding Method Bedside Commode Bedside Commode Bedside Commode Diaper # Voids 1 1 - Exam Physical exam 89-year-old female resting in bed pleasant cooperative oriented 3 Lungs essentially clear adequate air movement on room air Heart S1-S2 audible positive murmur Abdomen soft nontender no nausea no vomiting no stool Extremities brace on the right hip no edema noted - Labs CBC & Chem 7: 09/05/16 08:17 09/05/16 08:17 Labs: Abnormal Lab Results - Last 24 Hours (Table) 09/05/16 Range/Units 08:17 Iron 27 L (37-170) ug/dL TIBC 189 L (265-497) ug/dL % Saturation 14.3 L (20-50) % Microbiology - Last 24 Hours (Table) 08/30/16 15:25 Blood Culture - Final Blood No Growth after 144 hours Assessment and Plan Plan: Impression Present on admission altered mental status likely due to metabolic encephalopathy secondary to a UTI Chronic physical debility wears brace right hip limited mobility Essential hypertension Morbid obesity BMI 38 Hyperlipidemia Hypothyroidism on supplements Valvular heart disease aortic stenosis moderate on echocardiogram this admission Echocardiogram this admission severe pulmonary hypertension EF 60-65% UTI: Urine culture growing Enterobacter aeruginosa's. 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 Infectious disease is following. Repeat urine culture is negative. Infectious disease recommends no antibiotics at time of discharge. 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 Impression and the plan of care have been dictated as directed. Annie Watson nurse practitioner acting as a scribe for dr cintron
[2016-09-06] MEDS: IPRATROPIUM-ALBUTEROL 3 ML NEB INHALATION SCH ×3 (11:46→19:14)
[2016-09-06] MEDS: ATORVASTATIN 20 MG TAB PO SCH (22:13)
[2016-09-06] MEDS: ZOLPIDEM 5 MG TAB PO SCH (22:13)
[2016-09-07] MEDS: LEVOTHYROXINE 75 MCG TAB PO SCH (06:31)
[2016-09-07 07:51] LABS: Basophils % (A) 1 %; CH 29.9; CHCM 30.3; Eosinophils # (A) 0.1 k/uL (0-0.7); Eosinophils % (A) 3 %; HCT 33.4 % (34.0-46.0); HDW 3.05; HGB 10.2 gm/dL (11.4-16.0); Hypochromasia Marked; Luc % (Auto) 3; Lymphocytes # (A) 0.7 k/uL (1.0-4.8); Lymphocytes % (A) 18 %; MCH 30.4 pg (25.0-35.0); MCHC 30.6 g/dL (31.0-37.0); MCV 99.1 fL (80.0-100.0); Mean Platelet Volume 6.8; Monocytes # (A) 0.2 k/uL (0-1.0); Monocytes % (A) 6 %; Neutrophils # (A) 2.8 k/uL (1.3-7.7); Neutrophils % (A) 70 %; RBC 3.37 m/uL (3.80-5.40); RDW 14.4 % (11.5-15.5); WBC (Perox) 4.25
[2016-09-07] MEDS: IPRATROPIUM-ALBUTEROL 3 ML NEB INHALATION SCH ×3 (07:51→19:19)
[2016-09-07 08:25] LABS: ALT 20 U/L (9-52); AST 27 U/L (14-36); Alkaline Phosphatase 42 U/L (38-126); Anion Gap 5 mmol/L; Blood Urea Nitrogen 14 mg/dL (7-17); Carbon Dioxide 34 mmol/L (22-30); Chloride 103 mmol/L (98-107); Glucose 90 mg/dL (74-99); Non-African American GFR(MDRD) >60 (>60 ml/min/1.73 sqM); Potassium 4.2 mmol/L (3.5-5.1); Sodium 142 mmol/L (137-145); Total Bilirubin 0.6 mg/dL (0.2-1.3)
--- NOTE | 2016-09-07 10:03 | P.PN ---
Subjective 89-year-old female seen and evaluated resting comfortably in bed. No new events. Patient has been up in a chair takes the assist of 2 to transfer from bed to chair Patient denies any nausea vomiting chest pain or shortness of breath. Patient has a brace on the right hip which the patient states she wears 24 7 after having chronic dislocated right hip. She reports it takes the assist of 2 to transfer patient from the bed to a bedside commode must wear her brace at all times. Patient did have an echocardiogram it did show severe pulmonary hypertension with moderate aortic stenosis EF 60-65 cardiology has been consult currently pending did note the patient's advanced directives indicating no CODE STATUS The discharge plan is in progress. Physical therapy indicates the patient would benefit from an ECF placement. Patients being treated for acute metabolic encephalopathy secondary to a UTI present on admission Objective - Vital Signs Vital signs: Vital Signs Temp 97.1 F L 09/06/16 23:00 Pulse 55 L 09/07/16 07:00 Resp 18 09/07/16 07:00 BP 148/75 09/07/16 07:00 Pulse Ox 95 09/07/16 07:00 Intake & Output 09/06/16 09/07/16 09/07/16 18:59 06:59 18:59 Intake Total 390 Balance 390 Intake: Oral 390 Other: Voiding Method Bedside Commode Toilet Diaper Diaper # Voids 2 2 - Exam Physical exam 89-year-old female resting in bed pleasant cooperative oriented 3 nursing reports the patient was up in a chair this morning takes the assist of 2 Lungs essentially clear adequate air movement on room air Heart S1-S2 audible positive murmur denying chest pain Abdomen soft nontender no nausea no vomiting no stool Extremities brace on the right hip no edema noted - Labs CBC & Chem 7: 09/07/16 07:19 09/07/16 07:19 Labs: Abnormal Lab Results - Last 24 Hours (Table) 09/07/16 09/07/16 Range/Units 07:19 07:19 RBC 3.37 L (3.80-5.40) m/uL Hgb 10.2 L (11.4-16.0) gm/dL Hct 33.4 L (34.0-46.0) % MCHC 30.6 L (31.0-37.0) g/dL Lymphocytes # 0.7 L (1.0-4.8) k/uL Carbon Dioxide 34 H (22-30) mmol/L Total Protein 6.0 L (6.3-8.2) g/dL Albumin 2.9 L (3.5-5.0) g/dL Assessment and Plan Plan: Impression Present on admission altered mental status likely due to metabolic encephalopathy secondary to a UTI Chronic physical debility wears brace right hip limited mobility Essential hypertension Morbid obesity BMI 38 Hyperlipidemia Hypothyroidism on supplements Valvular heart disease aortic stenosis moderate on echocardiogram this admission Echocardiogram this admission severe pulmonary hypertension EF 60-65% UTI: Urine culture growing Enterobacter aeruginosa's. 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 Infectious disease is following. Repeat urine culture is negative. Infectious disease recommends no antibiotics at time of discharge. 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 Impression and the plan of care have been dictated as directed. Annie Watson nurse practitioner acting as a scribe for dr cintron
[2016-09-07] MEDS: ERTAPENEM 1 GM in SODIUM CHLORIDE 0.9% 50 ML IVPB SCH (10:14)
[2016-09-07] MEDS: hydrALAZINE HCL 25 MG TAB PO SCH ×2 (10:15→21:34)
[2016-09-07] MEDS: ATENOLOL 25 MG TAB PO SCH (10:15)
[2016-09-07] MEDS: ENOXAPARIN 40 MG/0.4 ML SYRINGE SQ SCH (10:15)
[2016-09-07] MEDS: ZINC OXIDE 20% OINT 28.4 GM TUBE TOPICAL SCH (10:15)
[2016-09-07] MEDS: ATORVASTATIN 20 MG TAB PO SCH (21:34)
[2016-09-07] MEDS: ZOLPIDEM 5 MG TAB PO SCH (21:34)
[2016-09-08] MEDS: LEVOTHYROXINE 75 MCG TAB PO SCH (06:23)
[2016-09-08] MEDS: IPRATROPIUM-ALBUTEROL 3 ML NEB INHALATION SCH ×4 (07:30→19:53)
[2016-09-08] MEDS: hydrALAZINE HCL 25 MG TAB PO SCH ×2 (08:06→22:21)
[2016-09-08] MEDS: ATENOLOL 25 MG TAB PO SCH (08:06)
[2016-09-08] MEDS: ENOXAPARIN 40 MG/0.4 ML SYRINGE SQ SCH (08:06)
[2016-09-08] MEDS: ZINC OXIDE 20% OINT 28.4 GM TUBE TOPICAL SCH (08:07)
--- NOTE | 2016-09-08 08:47 | PN ---
DATE OF SERVICE: 09/07/2016 Reason for follow-up: urinary tract infection. INTERVAL HISTORY: The patient is afebrile. She has been breathing comfortably. Denies significant chest pain. No cough. No abdominal pain. No diarrhea. On examination, blood pressure is 144/55 with a pulse of 66, temperature 97.6, she is 94% on 3 L nasal cannula. General description is an elderly female lying in bed in no distress. RESPIRATORY SYSTEM: Unlabored breathing. Clear to auscultation anteriorly. HEART: S1, S2 with regular rate and rhythm. ABDOMEN: soft, no tenderness. LABS: Hemoglobin is 10.2 and white count 4.0 and a BUN of 14, creatinine 0.76. Urine culture has been negative. DIAGNOSTIC IMPRESSION AND PLAN: Patient with Enterobacter urinary tract infection repeat urine culture has been negative. Patient's antibiotic will be discontinued and she has underlying infection that has been adequately treated. Will continue to monitor closely. [facility]
[2016-09-08] MEDS: FERROUS SULFATE 325 MG TAB PO SCH ×2 (12:22→17:47)
--- NOTE | 2016-09-08 14:02 | P.PN ---
Subjective Patient presented with altered mental status changes and found to have a urinary tract infection. Has a history of ESBL UTIs. Currently on Rocephin. Urine culture growing gram-negative bacilli. Patient awake and alert in bed. Reports feeling better. Denies any chest pain or shortness of breath. Denies any nausea or vomiting. Reports having a bowel movement this morning. Denies any burning with urination. Denies any cough. She reports being on 2 L nasal cannula at home. She is from a long term. 09/04/2016 patient is showing improvement. Denies any chest pain or shortness breath. Denies any nausea or vomiting. Has been having regular bowel movements. Denies any difficulty urinating 09/05/2016 patient sitting up at bedside chair. Denies any shortness of breath or chest pain. Denies any nausea or vomiting. She reports having bowel movements. Denies any difficulty urinating. Physical therapy has evaluated patient she is needing two-person assist in the recommending ECF placement. Patient would prefer to go home. Her echo from today showed severe pulmonary hypertension and moderate aortic stenosis with an EF of 60-65% cardiology will be consulted 09/08/2016 awaiting cardiology consult regarding the severe pulmonary hypertension. Patient currently off antibiotics for UTI. She's lying in bed comfortably. Denies any chest pain shortness of breath. Reports having bowel movements. Denies any burning with urination. Denies any shortness of breath or chest pain Objective - Vital Signs Vital signs: Vital Signs Temp 97.9 F 09/08/16 07:00 Pulse 60 09/08/16 07:00 Resp 16 09/08/16 07:00 BP 159/88 09/08/16 07:00 Pulse Ox 94 L 09/08/16 07:31 Intake & Output 09/07/16 09/08/16 09/08/16 18:59 06:59 18:59 Intake Total 480 Balance 480 Intake: Oral 480 Other: Voiding Method Toilet Toilet Toilet Diaper Diaper Diaper # Voids 2 2 - Exam Head normocephalic Neck supple Lungs diminished no crackles or wheezing Heart regular rate and rhythm S1-S2, no rub or gallop positive murmur Abdomen is soft nontender nondistended positive bowel sounds no hepatosplenomegaly Extremities no edema Neuro alert and orientated to to her name and place. - Labs CBC & Chem 7: 09/07/16 07:19 09/07/16 07:19 Assessment and Plan Plan: 1. Altered mental status changes likely related to a metabolic encephalopathy secondary to UTI. 2. UTI: Urine culture growing Enterobacter aeruginosa's. 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 Infectious disease is following. Repeat urine culture is negative. Infectious disease recommends no antibiotics at time of discharge. Questionable possible colonization in the urine. Infectious diseases discontinued antibiotics 3. Essential hypertension: Blood pressure elevated this morning. Did show improvement after blood pressure medications given 4. Hyperlipidemia 5. Hypothyroidism 6. Morbid obesity 7. Physical therapy consulted to increase activity 8. Severe pulmonary hypertension and moderate aortic stenosis noted on echo. This appears to be new for patient. We'll consult cardiology. Also note EF of 60-65%. 9. Iron deficiency anemia. Patient started on iron supplement. Hemoglobin 10.2 We are still awaiting cardiology consult. Cardiology has been renotified of their consult by nursing staff. Also, patient evaluated by physical therapy she is a 2 person assist and they're recommending patient perceives ECF placement. At this time patient was to go back to her long term and is not interested in ECF placement. I performed an examination of the patient and discussed their management with the physician Director Of Learning. I have reviewed the Physician Director Of Learning's notes and agree with the documented findings and plan of care
--- NOTE | 2016-09-08 21:36 | PN ---
DATE OF SERVICE: 09/08/2016 REASON FOR FOLLOWUP: Enterobacter urinary tract infection. INTERVAL HISTORY: The patient is febrile. She is breathing comfortably. Denies significant chest pain or cough. No abdominal pain. No diarrhea. On examination, blood pressure is 159/88 with a pulse of 60, temperature 97.9. She is 93% on 3 L nasal cannula. General description is an elderly female lying in bed in no distress. RESPIRATORY SYSTEM: Unlabored breathing. Clear to auscultation anteriorly. HEART: S1, S2. Regular rate and rhythm. ABDOMEN: Soft. No tenderness. DIAGNOSTIC IMPRESSION AND PLAN: Patient with enterobacter urinary tract infection, adequately treated. No need for further antibiotic therapy, as repeat urine cultures were negative. Will continue to monitor closely off antibiotic therapy. Family present at the bedside. Their questions were answered.
[2016-09-08] MEDS: ZOLPIDEM 5 MG TAB PO SCH (22:21)
[2016-09-08] MEDS: ATORVASTATIN 20 MG TAB PO SCH (22:21)
[2016-09-09] MEDS: LEVOTHYROXINE 75 MCG TAB PO SCH (06:27)
[2016-09-09 07:43] LABS: Basophils % (A) 1 %; CH 30.5; CHCM 31.1; Eosinophils # (A) 0.1 k/uL (0-0.7); Eosinophils % (A) 4 %; HCT 33.1 % (34.0-46.0); HDW 3.17; HGB 10.5 gm/dL (11.4-16.0); Hypochromasia Moderate; Luc # (Auto) 0.09; Luc % (Auto) 3; Lymphocytes # (A) 0.9 k/uL (1.0-4.8); Lymphocytes % (A) 25 %; MCH 31.1 pg (25.0-35.0); MCHC 31.6 g/dL (31.0-37.0); MCV 98.3 fL (80.0-100.0); Mean Platelet Volume 6.9; Monocytes # (A) 0.2 k/uL (0-1.0); Monocytes % (A) 6 %; Neutrophils # (A) 2.1 k/uL (1.3-7.7); Neutrophils % (A) 62 %; RBC 3.37 m/uL (3.80-5.40); RDW 14.6 % (11.5-15.5); WBC 3.4 k/uL (3.8-10.6); WBC (Perox) 3.31
[2016-09-09 08:10] LABS: ALT 33 U/L (9-52); AST 46 U/L (14-36); Alkaline Phosphatase 45 U/L (38-126); Anion Gap 6 mmol/L; Blood Urea Nitrogen 15 mg/dL (7-17); Calcium 9.1 mg/dL (8.4-10.2); Carbon Dioxide 34 mmol/L (22-30); Chloride 102 mmol/L (98-107); Glucose 87 mg/dL (74-99); Non-African American GFR(MDRD) >60 (>60 ml/min/1.73 sqM); Potassium 4.1 mmol/L (3.5-5.1); Sodium 142 mmol/L (137-145); Total Bilirubin 0.7 mg/dL (0.2-1.3)
[2016-09-09] MEDS: hydrALAZINE HCL 25 MG TAB PO SCH ×2 (08:12→21:15)
[2016-09-09] MEDS: ENOXAPARIN 40 MG/0.4 ML SYRINGE SQ SCH (08:12)
[2016-09-09] MEDS: ZINC OXIDE 20% OINT 28.4 GM TUBE TOPICAL SCH (08:12)
[2016-09-09] MEDS: ATENOLOL 25 MG TAB PO SCH (08:12)
[2016-09-09] MEDS: IPRATROPIUM-ALBUTEROL 3 ML NEB INHALATION SCH ×4 (09:57→19:58)
[2016-09-09] MEDS: FERROUS SULFATE 325 MG TAB PO SCH ×2 (12:48→17:23)
--- NOTE | 2016-09-09 16:07 | PN ---
DATE OF SERVICE: 09/09/2016 REASON FOR FOLLOWUP: Enterobacter urinary tract infection. INTERVAL HISTORY: The patient is afebrile. She is currently breathing comfortably. The patient denies any significant chest pain. No cough. No abdominal pain. No nausea, vomiting or any diarrhea. On examination, blood pressure 155/76 with a pulse of 61, temperature 97.8. She is 94% on 3 L nasal cannula. General description is an elderly female lying in bed in no distress. RESPIRATORY SYSTEM: Unlabored breathing. Clear to auscultation anteriorly. HEART: S1, S2. Regular rate and rhythm. ABDOMEN: Soft. No tenderness. LABS: Hemoglobin 10.5, white count 3.4 with a BUN of 15, creatinine 0.87. DIAGNOSTIC IMPRESSION AND PLAN: Patient with enterobacter urinary tract infection, adequately treated. Repeat culture so far negative. PLAN: No antibiotic therapy further at this point. Continue to monitor her closely.
--- NOTE | 2016-09-09 20:16 | P.PN ---
Subjective Patient presented with altered mental status changes and found to have a urinary tract infection. Has a history of ESBL UTIs. Currently on Ertapenem per infectious disease recommendation. Urine culture growing gram-negative bacilli, Enterobacter Aerogens Patient awake and alert in bed. Reports feeling better. Denies any chest pain or shortness of breath. Denies any nausea or vomiting. Reports having a bowel movement this morning. Denies any burning with urination. Denies any cough. She reports being on 2 L nasal cannula at home. She is from a halfway. Objective - Vital Signs Vital signs: Vital Signs Temp 98.1 F 09/09/16 15:00 Pulse 55 L 09/09/16 15:00 Resp 16 09/09/16 15:00 BP 130/66 09/09/16 15:00 Pulse Ox 94 L 09/09/16 15:00 Intake & Output 09/09/16 09/09/16 09/10/16 06:59 18:59 06:59 Intake Total 437 Balance 437 Intake: Oral 437 Other: Voiding Method Toilet Toilet Diaper Diaper # Voids 1 3 # Bowel Movements 1 - Exam In general patient is alert and oriented in no apparent distress HEENT head normocephalic and atraumatic Neck is supple no JVD no goiter no lymphadenopathy Chest exam reveals a few scattered crackles no wheezing Cardiac exam reveals regular heart sounds no gallops no murmurs Abdomen is soft nontender no organomegaly Extremity exam reveals no edema no cyanosis or clubbing - Labs CBC & Chem 7: 09/09/16 07:30 09/09/16 07:30 Labs: Abnormal Lab Results - Last 24 Hours (Table) 09/09/16 09/09/16 Range/Units 07:30 07:30 WBC 3.4 L (3.8-10.6) k/uL RBC 3.37 L (3.80-5.40) m/uL Hgb 10.5 L (11.4-16.0) gm/dL Hct 33.1 L (34.0-46.0) % Lymphocytes # 0.9 L (1.0-4.8) k/uL Carbon Dioxide 34 H (22-30) mmol/L AST 46 H (14-36) U/L Total Protein 6.0 L (6.3-8.2) g/dL Albumin 2.8 L (3.5-5.0) g/dL Assessment and Plan Plan: #1 urinary tract infection with history of ESBL: Currently off antibiotic per infectious disease recommendation. 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 improving gradually
[2016-09-09] MEDS: ZOLPIDEM 5 MG TAB PO SCH (21:14)
[2016-09-09] MEDS: ATORVASTATIN 20 MG TAB PO SCH (21:15)
[2016-09-10] MEDS: LEVOTHYROXINE 75 MCG TAB PO SCH (06:11)
[2016-09-10 07:45] VITALS: BP 157/74; RESP 18; TEMP 97.9
[2016-09-10] MEDS: ATENOLOL 25 MG TAB PO SCH (07:58)
[2016-09-10] MEDS: hydrALAZINE HCL 25 MG TAB PO SCH (07:58)
[2016-09-10] MEDS: ENOXAPARIN 40 MG/0.4 ML SYRINGE SQ SCH (07:58)
[2016-09-10] MEDS: ZINC OXIDE 20% OINT 28.4 GM TUBE TOPICAL SCH (07:59)
[2016-09-10 08:06] VITALS: PULSE 69
[2016-09-10 09:20] LABS: ALT 44 U/L (9-52); AST 62 U/L (14-36); Alkaline Phosphatase 50 U/L (38-126); Anion Gap 7 mmol/L; Blood Urea Nitrogen 19 mg/dL (7-17); Calcium 9.6 mg/dL (8.4-10.2); Carbon Dioxide 33 mmol/L (22-30); Chloride 102 mmol/L (98-107); Glucose 92 mg/dL (74-99); Non-African American GFR(MDRD) >60 (>60 ml/min/1.73 sqM); Potassium 4.4 mmol/L (3.5-5.1); Sodium 142 mmol/L (137-145); Total Bilirubin 0.7 mg/dL (0.2-1.3); Total Protein 6.6 g/dL (6.3-8.2)
[2016-09-10 09:47] LABS: Basophils % (A) 1 %; CH 30.1; CHCM 30.3; Eosinophils # (A) 0.2 k/uL (0-0.7); Eosinophils % (A) 4 %; HCT 37.5 % (34.0-46.0); HDW 2.94; HGB 11.1 gm/dL (11.4-16.0); Hypochromasia Marked; Luc % (Auto) 3; Lymphocytes % (A) 27 %; MCH 29.6 pg (25.0-35.0); MCHC 29.6 g/dL (31.0-37.0); MCV 99.9 fL (80.0-100.0); Macrocytosis Slight; Mean Platelet Volume 6.9; Monocytes # (A) 0.2 k/uL (0-1.0); Monocytes % (A) 5 %; Neutrophils # (A) 2.3 k/uL (1.3-7.7); Neutrophils % (A) 61 %; RBC 3.75 m/uL (3.80-5.40); RDW 14.8 % (11.5-15.5); WBC 3.8 k/uL (3.8-10.6)
--- NOTE | 2016-09-10 10:52 | CONS ---
DATE OF CONSULTATION: Mrs. Juarez is an 89-year-old female who is seen for cardiac evaluation. This patient's medical records are reviewed. We were requested to see the patient because of pulmonary hypertension. This patient is primarily admitted with change in mental status and has been treated for urinary tract infection and possible sepsis. Patient does have a history of COPD, and history of heart failure. Patient resides in an adult foster assisted and has been using oxygen most of the time. Patient denies any definite history of orthopnea or PND. She has a history of hypertension. There is no prior history of myocardial infarction. Past medical history includes history of hysterectomy and joint replacement. Patient's current medications include Tenormin, Feosol, Lasix, Synthroid, Ambien and hydralazine 25 mg b.i.d. Physical examination at present reveals an 89-year-old female who does not appear to be in any acute distress. Blood pressure is 157/74 mmHg, heart rate is 60 per minute. HEENT examination is negative. Neck is supple. There is no significant increase in jugular venous pressure. Both the carotid pulses are felt. There is no bruit. Chest is symmetrical. HEART: The PMI is not felt. First and second heart sounds are normal. There is a grade 2/6 ejection systolic murmur noted which peaks in mid to late systole. Lungs are clear to auscultation and percussion. There is a hyperresonant note. Abdomen is soft. Liver is not enlarged. EXTREMITIES: Peripheral pulsations are 2+. There is no evidence of any significant leg edema. Patient's electrolytes are normal. Creatinine is 0.83. Patient's echocardiogram revealed normal left ventricular systolic function, moderate degree of aortic stenosis and pulmonary hypertension. FINAL IMPRESSION: This patient has been treated for urinary tract infection and sepsis and she seems to be improved. Patient has evidence of pulmonary hypertension which is most likely secondary to underlying chronic obstructive pulmonary disease and some degree of chronic diastolic dysfunction and aortic stenosis. However, there was no significant left atrial enlargement. Patient does have a moderate degree of aortic stenosis. Patient does not have any evidence of significant right-sided heart failure at present. We will add small dose of Lasix 20 mg daily and follow the patient's creatinine as an outpatient. Thank you very much for letting me participate in the care of this nice lady.
[2016-09-10] MEDS: IPRATROPIUM-ALBUTEROL 3 ML NEB INHALATION SCH (11:13)
[2016-09-10] MEDS: FERROUS SULFATE 325 MG TAB PO SCH (11:38)
--- NOTE | 2016-09-10 13:09 | P.DS ---
Providers Date of admission: 08/30/16 15:15 Expected date of discharge: 09/10/16 Attending physician: Mirta Collins Consults: 08/31/16 14:06 Consult Physician Routine Consulting Provider: Lakisha Sol Consult Reason/Comments: UTI with history of ESBL Do you want consulting provider notified?: Yes 09/10/16 09:42 Consult Physician Routine Consulting Provider: Kimberly Oakley Consult Reason/Comments: hypotension Do you want consulting provider notified?: Already Contacted Primary care physician: Mirtachrista Collins [facility] Course: Diagnosis on discharge #1 urinary tract infection with history of ESBL: Currently on Levaquin. Consult infectious disease. Awaiting urine culture. 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 She was very sleepy for the past few days and her orientation is getting worse. She is usually awake and oriented 3. Her daughter at bedside today. She was evaluated in the emergency room and was found to have evidence of underlying UTI. She is currently admitted to the hospital for further treatment. Her mentation is significantly better today. According to her daughter she is back to normal baseline. Patient was seen by infectious disease urine culture was positive for Enterobacter aerogenes which was resistant to most antibiotics she was switched to Etrapenem and completed course of antibiotics during this admission no oral antibiotic is needed at the time of discharge. During this admission patient had an echocardiogram which revealed evidence of severe pulmonary hypertension, and evidence of moderate aortic stenosis, she was seen by cardiology consultation Dr. Willson, Lasix 20 mg by mouth daily was added to her regimen. Patient was having significant physical debility she needed 2 person helped to be transferred she was unable to return back to [facility] due to her physical needs she will be discharged to [facility] on the [address]. Patient Condition at Discharge: Fair Plan - Discharge Summary Discharge Medication List Atenolol 25 mg PO DAILY 11/25/14 [History] Atorvastatin [Lipitor] 20 mg PO HS 11/25/14 [History] Levothyroxine Sodium [Synthroid] 75 mcg PO DAILY@0600 11/25/14 [History] Risedronate Sodium [Actonel] 150 mg PO Q28D 11/25/14 [History] hydrALAZINE HCL 25 mg PO BID 11/25/14 [History] HYDROcodone/APAP 10-325MG [Ephrata 10-325] 1 tab PO Q8HR PRN #40 tab 02/28/16 [Rx] Zolpidem [Ambien] 5 mg PO HS #30 tab 02/28/16 [Rx] Dimethicone/Zinc Oxide [Inzo Zinc Oxide Barrier Cream] 1 applic TOPICAL DAILY [History] Gold Edge Body Powder 1 applic TOPICAL BID 08/30/16 [History] Magnesium Hydroxide [Milk of Magnesia] 2,400 mg PO DAILY PRN 08/30/16 [History] Furosemide [Lasix] 20 mg PO DAILY tab 09/10/16 [Rx] Follow up Appointment(s)/Referral(s): Mirta Collins MD [Primary Care Provider] - 1-2 days
[2016-09-11] MEDS ORDERED: FUROSEMIDE 20 MG TAB PO SCH (09:00)
== END 2016-09-10 15:15 | DRG 689 ==
LOC: EC 13:22 → 5MS5E 15:15
PROVIDERS: ADMIT Internal Medicine; ATTEND Internal Medicine
DX: N39.0 Urinary tract infection, site not specified (principal); G93.41 Metabolic encephalopathy; I27.2 Other secondary pulmonary hypertension; I11.0 Hypertensive heart disease with heart failure; E66.01 Morbid (severe) obesity due to excess calories; I50.9 Heart failure, unspecified; T84.020A Dislocation of internal right hip prosthesis, initial encounter; J44.9 Chronic obstructive pulmonary disease, unspecified; B96.89 Other specified bacterial agents as the cause of diseases classified elsewhere; D50.9 Iron deficiency anemia, unspecified; E03.9 Hypothyroidism, unspecified; E78.5 Hyperlipidemia, unspecified; H91.90 Unspecified hearing loss, unspecified ear; I35.0 Nonrheumatic aortic (valve) stenosis; R32 Unspecified urinary incontinence; Y79.2 Prosthetic and other implants, materials and accessory orthopedic devices associated with adverse incidents; Z16.24 Resistance to multiple antibiotics; Z68.38 Body mass index [BMI] 38.0-38.9, adult; Z79.899 Other long term (current) drug therapy; Z82.49 Family history of ischemic heart disease and other diseases of the circulatory system; Z87.440 Personal history of urinary (tract) infections
CPT/HCPCS: 36415; 71020; 80048; 80053; 81001; 82550; 82553; 82607; 83540; 83550; 83735; 83880; 84100; 84443; 84484; 85025; 85610; 85730; 87040; 87077; 87086; 87186; 93005; 93306; 94640; 94760; 96361; 96365; 99285

== ENCOUNTER 2016-10-30 23:47 | Inpatient (IN) | payer MEDICARE, BC ==
[2016-10-31 01:03] LABS: Partial Thromboplastin Time 24.4 sec (22.0-30.0); Prothrombin Time 10.1 sec (9.0-12.0)
--- NOTE | 2016-10-31 01:04 | XR ---
EXAM: XR Chest, 1 View CLINICAL HISTORY: Reason: weakness TECHNIQUE: Frontal view of the chest. COMPARISON: 09/03/16 FINDINGS/IMPRESSION: Stable cardiomegaly. Perihilar and lung base opacities. Suspect some increasing right lung base opacity compared to the previous. Left lung base limited by summation. Findings may represent edema and/or infiltrate.
[2016-10-31 01:09] LABS: Calcium 9.6 mg/dL (8.4-10.2); Potassium 4.8 mmol/L (3.5-5.1); Total Bilirubin 0.8 mg/dL (0.2-1.3); Total Protein 6.8 g/dL (6.3-8.2)
[2016-10-31 01:12] LABS: Basophils % (A) 0 %; CH 30.8; CHCM 31.8; Eosinophils % (A) 0 %; HCT 35.7 % (34.0-46.0); HDW 2.98; HGB 11.5 gm/dL (11.4-16.0); Hypochromasia Slight; Luc % (Auto) 1; Lymphocytes # (A) 0.8 k/uL (1.0-4.8); Lymphocytes % (A) 5 %; MCH 31.4 pg (25.0-35.0); MCHC 32.3 g/dL (31.0-37.0); MCV 96.9 fL (80.0-100.0); Mean Platelet Volume 7.1; Monocytes # (A) 0.7 k/uL (0-1.0); Monocytes % (A) 4 %; Neutrophils # (A) 15.2 k/uL (1.3-7.7); Neutrophils % (A) 90 %; RBC 3.68 m/uL (3.80-5.40); RDW 14.7 % (11.5-15.5); WBC 16.9 k/uL (3.8-10.6); WBC (Perox) 18.03
[2016-10-31 01:15] LABS: Creatine Kinase <20 U/L (30-135)
[2016-10-31 01:28] LABS: Creatine Kinase MB 0.5 ng/mL (0.0-2.4); Troponin I <0.012 ng/mL (0.000-0.034)
[2016-10-31] MEDS ORDERED: PNEUMONIA PROTOCOL UTILIZED 1 EACH MISC PO PRN (02:17)
[2016-10-31] MEDS ORDERED: LEVOFLOXACIN 750MG-D5W PMX 750 MG in DEXTROSE/WATER 1 150ML.BAG IVPB STA (02:17)
[2016-10-31] MEDS ORDERED: PIPERACILLIN-TAZOBACTAM 3.375 GM in DEXTROSE/WATER 1 50ML.BAG IVPB STA (02:17)
[2016-10-31] MEDS ORDERED: MAGNESIUM HYDROXIDE 2,400 MG/10 ML CUP PO PRN (02:21)
--- NOTE | 2016-10-31 02:29 | ED ---
General Adult HPI - General Chief complaint: Weakness Stated complaint: LETHARGIC Time Seen by Provider: 10/31/16 00:10 Source: patient, family, EMS Mode of arrival: EMS Limitations: altered mental status - History of Present Illness Initial comments: This patient is an 89-year-old woman who lives at [facility], who was sent over to have evaluation for altered mental status. The patient appears delirious and is not able to give any history. The patient's son is present and gives some history. He states that the patient has been more somnolent than usual for approximately 3 days. He had taken her to her doctor's appointment on Thursday and she had slept during the ride there and back, as well as falling asleep in the waiting room and in the exam room. This behavior is not normal for her. When the patient is aroused she denies pain. Onset/Timin -: days(s) - Related Data Home Medications Medication Instructions Recorded Confirmed Atenolol 25 mg PO DAILY 11/25/14 08/30/16 Atorvastatin [Lipitor] 20 mg PO HS 11/25/14 08/30/16 Levothyroxine Sodium [Synthroid] 75 mcg PO DAILY@0600 11/25/14 08/30/16 Risedronate Sodium [Actonel] 150 mg PO Q28D 11/25/14 08/30/16 hydrALAZINE HCL 25 mg PO BID 11/25/14 08/30/16 Dimethicone/Zinc Oxide [Inzo Zinc 1 applic TOPICAL DAILY 08/30/16 08/30/16 Oxide Barrier Cream] Gold Edge Body Powder 1 applic TOPICAL BID 08/30/16 08/30/16 Magnesium Hydroxide [Milk of 2,400 mg PO DAILY PRN 08/30/16 08/30/16 Magnesia] Previous Rx's Medication Instructions Recorded HYDROcodone/APAP 10-325MG [[place] 1 tab PO Q8HR PRN #40 tab 02/28/16 10-325] Zolpidem [Ambien] 5 mg PO HS #30 tab 02/28/16 Furosemide [Lasix] 20 mg PO DAILY tab 09/10/16 Allergies Allergy/AdvReac Type Severity Reaction Status Date / Time No Known Allergies Allergy Verified 08/30/16 14:02 Review of Systems ROS Statement: Those systems with pertinent positive or pertinent negative responses have been documented in the HPI. ROS Other: All systems not noted in ROS Statement are negative. Limitations: ROS unobtainable due to patients medical condition Respiratory: Denies: dyspnea Cardiovascular: Denies: chest pain Past Medical History Past Medical History: Heart Failure, COPD, Deep Vein Thrombosis (DVT), Eye Disorder, Hearing Disorder / Deafness, Hyperlipidemia, Hypertension, Musculoskeletal Disorder, Pneumonia, Skin Disorder, Thyroid Disorder Additional Past Medical History / Comment(s): 12-28-14 slipped while putting on hip brace- dislocated rt hip. 11-25-14 uti(e coli) and also ecoli in blood. 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 PNEUMONIAE URINE 02/29/16, Enterobacter aerogenes urine 09/02/16 Past Surgical History: Hysterectomy, Joint Replacement Additional Past Surgical History / Comment(s): Right Hip replacement and dislocation, wears hip splint, right knee surgery Additional Past Anesthesia/Blood Transfusion Reaction / Comment(s): patient takes a long time to wake up after anesthesia Past Psychological History: No Psychological Hx Reported Smoking Status: Unknown if ever smoked Past Alcohol Use History: None Reported Past Drug Use History: None Reported - Past Family History Father Family Medical History: Myocardial Infarction ([place]) Additional Family Medical History / Comment(s): heart disease Mother Family Medical History: Hypertension, Myocardial Infarction ([place]) Additional Family Medical History / Comment(s): heart disease General Exam Limitations: no limitations General appearance: obese, other (Patient is extremely somnolent. I'm able to wake her with tactile stimuli but then she appears delirious.) Head exam: Present: atraumatic, normocephalic Eye exam: Present: normal appearance, PERRL. Absent: scleral icterus, conjunctival injection ENT exam: Present: mucous membranes dry Neck exam: Present: normal inspection. Absent: tenderness, meningismus Respiratory exam: Present: rales (Bilateral bases). Absent: wheezes, rhonchi, stridor, chest wall tenderness Cardiovascular Exam: Present: regular rate, normal rhythm, systolic murmur ( Grade 2/6 systolic ejection murmur). Absent: diastolic murmur, rubs, gallop GI/Abdominal exam: Present: soft. Absent: distended, tenderness, guarding, rebound, mass Extremities exam: Present: normal inspection, normal capillary refill. Absent: pedal edema, calf tenderness Neurological exam: Present: altered. Absent: motor sensory deficit Skin exam: Present: warm, dry, intact, normal color. Absent: rash Course Vital Signs 10/30/16 10/31/16 10/31/16 23:54 02:02 02:55 Temperature 98.7 F 97.8 F Pulse Rate 63 66 60 Respiratory 18 20 20 Rate Blood Pressure 141/58 130/66 134/62 O2 Sat by Pulse 91 L 99 Oximetry EKG Findings - EKG Results: EKG: interpreted by ASHIA ADORNO, sinus rhythm, normal axis, normal QRS, normal ST/ T, no acute changes - [place], Pacemaker, Normal: Normal tracing: normal tracing Medical Decision Making - Medical Decision Making This patient is an 89-year-old woman in from her residence for altered mental status. She does have leukocytosis and the chest x-ray does appear to show worsened right lower lobe versus the last comparison film. Her pulse oximetry is also low, and these suggest acute pneumonia. Case discussed with Dr. Collins who will admit the patient. IV antibiotics started. - Lab Data Result diagrams: 10/31/16 00:30 10/31/16 00:30 Lab Results 10/31/16 10/31/16 10/31/16 Range/Units 00:30 00:30 00:30 WBC 16.9 H (3.8-10.6) k/uL RBC 3.68 L (3.80-5.40) m/uL Hgb 11.5 (11.4-16.0) gm/dL Hct 35.7 (34.0-46.0) % MCV 96.9 (80.0-100.0) fL MCH 31.4 (25.0-35.0) pg MCHC 32.3 (31.0-37.0) g/dL RDW 14.7 (11.5-15.5) % Plt Count 198 (150-450) k/uL Neutrophils % 90 % Lymphocytes % 5 % Monocytes % 4 % Eosinophils % 0 % Basophils % 0 % Neutrophils # 15.2 H (1.3-7.7) k/uL Lymphocytes # 0.8 L (1.0-4.8) k/uL Monocytes # 0.7 (0-1.0) k/uL Eosinophils # 0.0 (0-0.7) k/uL Basophils # 0.0 (0-0.2) k/uL Hypochromasia Slight PT (9.0-12.0) sec INR (<1.1) APTT (22.0-30.0) sec Sodium 139 (137-145) mmol/L Potassium 4.8 (3.5-5.1) mmol/L Chloride 102 (98-107) mmol/L Carbon Dioxide 26 (22-30) mmol/L Anion Gap 11 mmol/L BUN 36 H (7-17) mg/dL Creatinine 1.10 H (0.52-1.04) mg/dL Est GFR (MDRD) Af Amer 57 (>60 ml/min/1.73 sqM) Est GFR (MDRD) Non-Af 47 (>60 ml/min/1.73 sqM) Glucose 130 H (74-99) mg/dL Plasma Lactic Acid Holden (0.7-2.0) mmol/L Calcium 9.6 (8.4-10.2) mg/dL Magnesium 2.0 (1.6-2.3) mg/dL Total Bilirubin 0.8 (0.2-1.3) mg/dL AST 22 (14-36) U/L ALT 33 (9-52) U/L Alkaline Phosphatase 57 (38-126) U/L Total Creatine Kinase <20 L (30-135) U/L CK-MB (CK-2) 0.5 (0.0-2.4) ng/mL CK-MB (CK-2) Rel Index 0.0 Troponin I <0.012 (0.000-0.034) ng/mL Total Protein 6.8 (6.3-8.2) g/dL Albumin 3.6 (3.5-5.0) g/dL 10/31/16 10/31/16 Range/Units 00:30 00:30 WBC (3.8-10.6) k/uL RBC (3.80-5.40) m/uL Hgb (11.4-16.0) gm/dL Hct (34.0-46.0) % MCV (80.0-100.0) fL MCH (25.0-35.0) pg MCHC (31.0-37.0) g/dL RDW (11.5-15.5) % Plt Count (150-450) k/uL Neutrophils % % Lymphocytes % % Monocytes % % Eosinophils % % Basophils % % Neutrophils # (1.3-7.7) k/uL Lymphocytes # (1.0-4.8) k/uL Monocytes # (0-1.0) k/uL Eosinophils # (0-0.7) k/uL Basophils # (0-0.2) k/uL Hypochromasia PT 10.1 (9.0-12.0) sec INR 1.0 (<1.1) APTT 24.4 (22.0-30.0) sec Sodium (137-145) mmol/L Potassium (3.5-5.1) mmol/L Chloride (98-107) mmol/L Carbon Dioxide (22-30) mmol/L Anion Gap mmol/L BUN (7-17) mg/dL Creatinine (0.52-1.04) mg/dL Est GFR (MDRD) Af Amer (>60 ml/min/1.73 sqM) Est GFR (MDRD) Non-Af (>60 ml/min/1.73 sqM) Glucose (74-99) mg/dL Plasma Lactic Acid Holden 0.9 (0.7-2.0) mmol/L Calcium (8.4-10.2) mg/dL Magnesium (1.6-2.3) mg/dL Total Bilirubin (0.2-1.3) mg/dL AST (14-36) U/L ALT (9-52) U/L Alkaline Phosphatase (38-126) U/L Total Creatine Kinase (30-135) U/L CK-MB (CK-2) (0.0-2.4) ng/mL CK-MB (CK-2) Rel Index Troponin I (0.000-0.034) ng/mL Total Protein (6.3-8.2) g/dL Albumin (3.5-5.0) g/dL Disposition Clinical Impression: Altered mental status, Pneumonia Disposition: ADMITTED IP TO THIS HOSP Condition: Poor
[2016-10-31] MEDS ORDERED: RISEDRONATE SODIUM 150 MG PO SCH (02:30)
--- NOTE | 2016-10-31 02:31 | CT ---
EXAM: CT Head Without Intravenous Contrast CLINICAL HISTORY: Reason: altered mental status TECHNIQUE: Axial computed tomography images of the head/brain without intravenous contrast. DLP is 990.5 mGy-cm. This CT exam was performed using one or more of the following dose reduction techniques: automated exposure control, adjustment of the mA and/or kV according to patient size, and/or use of iterative reconstruction technique. COMPARISON: 06/15/15 FINDINGS: Atrophy. White matter changes. Ng-white differentiation is maintained. MRI more sensitive for acute ischemia, if indicated. No intracranial hemorrhage or mass effect. Imaged paranasal sinuses and mastoids are well-aerated. IMPRESSION: No acute intracranial findings
[2016-10-31] MEDS: SODIUM CHLORIDE 0.9% 1,000 ML IV SCH ×3 (02:50→22:32)
[2016-10-31 03:49] LABS: Appearance,Urine Clear (Clear); Bacteria,Urine Many /hpf; Bilirubin,Urine Negative (Negative); Glucose,Urine (UA) Negative (Negative); Ketones,Urine Negative (Negative); Leukocyte Esterase,Urine Large (Negative); Nitrite,Urine Positive (Negative); PH, Urine 6.5 (5.0-8.0); Particle Count 4581; Protein,Urine Trace (Negative); RBC,Urine 5 /hpf (0-5); Specific Gravity,Urine 1.012 (1.001-1.035); Squamous Epithelial Cell,Urine <1 /hpf (0-4); UA Billing (MACRO vs. MICRO) MICRO; Urobilinogen,Urine <2.0 mg/dL (<2.0); WBC,Urine 103 /hpf (0-5)
[2016-10-31] MEDS: HEPARIN SODIUM,PORCINE 5,000 UNIT/ML 1 ML VIAL SQ SCH ×3 (03:54→20:35)
[2016-10-31] MEDS: LEVOTHYROXINE 75 MCG TAB PO SCH (05:57)
[2016-10-31] MEDS: PIPERACILLIN-TAZOBACTAM 3.375 GM in DEXTROSE/WATER 1 50ML.BAG IVPB SCH ×3 (08:13→23:30)
[2016-10-31] MEDS: ATENOLOL 25 MG TAB PO SCH (08:13)
[2016-10-31] MEDS: FUROSEMIDE 20 MG TAB PO SCH (08:13)
[2016-10-31] MEDS: hydrALAZINE HCL 25 MG TAB PO SCH ×2 (08:13→20:34)
[2016-10-31] MEDS: MENTHOL-ZINC OXIDE OINT 113 GM TUBE TOPICAL SCH (08:13)
[2016-10-31] MEDS ORDERED: GOLD BOND BODY TOPICAL SCH (09:00)
[2016-10-31] MEDS ORDERED: ACETAMINOPHEN TAB 325 MG TAB PO PRN (14:14)
[2016-10-31] MEDS ORDERED: ALPRAZolam 0.25 MG TAB PO PRN (14:14)
--- NOTE | 2016-10-31 14:22 | P.HPIM ---
History of Present Illness H&P Date: 10/31/16 Chief Complaint: Mental status changes This is a 89-year-old female with a known past medical history of hyperlipidemia , hypertension, congestive heart failure and UTI. Patient is currently a resident at [facility]. She was brought into the hospital due to altered mental status changes. Patient's family gave most of the history. They've reported that she was falling asleep yesterday during mealtime. And this is unusual behavior for patient. When patient was time for bed nursing staff was unable to arouse patient for her evening medications. Therefore EMS was called and she was brought into the emergency room for further evaluation and treatment. The ER report and chest x-ray are not available. I have asked that these reports be put into the computer for me to read. There was concern about a possible pneumonia and patient was given 1 dose of Zosyn in the emergency room and started on Levaquin. Patient reports to a chronic cough but nothing new. She also has evidence of a urinary tract section. She does admit to having some burning with urination off and on. White count was 16.9 and admission and she hasn't dehydration with a creatinine of 1.10. She started on IV antibiotics IV fluids. Also complaining of left shoulder pain in which we will order an x-ray and consult Dr. Orellana. Patient is even having difficulty moving that arm. Patient denies any fevers chills or sweats. Denies any chest pain or shortness of breath. Denies any nausea or vomiting. Denies any bowel movement changes. Patient does report having difficulty with her oxygen machine not working appropriately at [facility]. This is being looked at. Also note that the son said that patient's oxygen saturation saturations were dropping into the 80s at [facility]. Review of Systems Please refer to HPI otherwise unremarkable Past Medical History Past Medical History: Cancer, Heart Failure, COPD, Deep Vein Thrombosis (DVT), Eye Disorder, Hearing Disorder / Deafness, Hyperlipidemia, Hypertension, Musculoskeletal Disorder, Neurologic Disorder, Osteoarthritis (OA), Pneumonia, Skin Disorder, Thyroid Disorder Additional Past Medical History / Comment(s): Numerous right hip prostheis hip dislocations, scoliosis, osteoporosis, 08/2016 echo showing severe pulmonary htn and moderate aortic stenosis, murmur, UTIs- 8-815 uti(e coli) and also ecoli in blood, toxo metabolic encephalopathy, Guilliane [place], cataracts, [place]GR[place], rash from hip brace in the past, hemorrhoids, skin cancer with removal, O2 at 3L/NC ATC. History of Any Multi-Drug Resistant Organisms: ESBL, Other MDRO Date of last positivie culture/infection: 02/29/16, 09/02/16 MDRO Source:: URINE KL. PNEUMONIAE URINE 02/29/16, Enterobacter aerogenes urine 09/02/16 Past Surgical History: Hysterectomy, Joint Replacement Additional Past Surgical History / Comment(s): Right Hip replacement and multiple dislocations/closed reductions, skin cancer removal. Additional Past Anesthesia/Blood Transfusion Reaction / Comment(s): patient takes a long time to wake up after anesthesia Smoking Status: Never smoker - Past Family History Father Family Medical History: Myocardial Infarction ([place]) Additional Family Medical History / Comment(s): heart disease Mother Family Medical History: Hypertension, Myocardial Infarction ([place]) Additional Family Medical History / Comment(s): heart disease Medications and Allergies Home Medications Medication Instructions Recorded Confirmed Type Atenolol 25 mg PO DAILY 11/25/14 10/31/16 History Atorvastatin [Lipitor] 20 mg PO HS 11/25/14 10/31/16 History Levothyroxine Sodium [Synthroid] 75 mcg PO DAILY@0600 11/25/14 10/31/16 History Risedronate Sodium [Actonel] 150 mg PO Q28D 11/25/14 10/31/16 History hydrALAZINE HCL 25 mg PO BID 11/25/14 10/31/16 History Magnesium Hydroxide [Milk of 2,400 mg PO DAILY PRN 08/30/16 10/31/16 History Magnesia] ALPRAZolam [Xanax] 0.25 mg PO HS PRN 10/31/16 10/31/16 History Allergies Allergy/AdvReac Type Severity Reaction Status Date / Time No Known Allergies Allergy Verified 10/31/16 08:18 Physical Exam Vitals: Vital Signs Temp Pulse Pulse Resp BP BP Pulse Ox 10/31/16 08:28 95 10/31/16 08:00 55 L 20 10/31/16 07:00 98.2 F 55 L 20 118/56 98 10/31/16 03:58 67 18 10/31/16 03:42 98 F 67 18 139/60 91 L 10/31/16 02:55 97.8 F 60 20 134/62 10/31/16 02:02 66 20 130/66 99 10/30/16 23:54 98.7 F 63 18 141/58 91 L Intake and Output 10/30/16 10/31/16 10/31/16 22:59 06:59 14:59 Intake Total 300 240 Balance 300 240 Intake: Intake, IV Titration 300 Amount Sodium Chloride 0.9% 1, 300 000 ml @ 100 mls/hr IV . Q10H PRIMO Rx#:[id number] Oral 240 Other: # Voids 3 Weight 113.398 kg Head normocephalic Neck supple Lungs diminished bilaterally Heart regular rate and rhythm S1-S2, no rub or gallop Abdomen is soft nontender nondistended positive bowel sounds no hepatosplenomegaly Extremities no edema. Tenders palpation of the left shoulder difficulty with range of motion Neuro alert and orientated to 3. No facial droop. Hand senior engineering technician equal bilaterally. Lower extremity strength equal bilaterally Results CBC & Chem 7: 10/31/16 00:30 10/31/16 00:30 Labs: Abnormal Lab Results - Last 24 Hours (Table) 10/31/16 10/31/16 10/31/16 Range/Units 00:30 00:30 00:30 WBC 16.9 H (3.8-10.6) k/uL RBC 3.68 L (3.80-5.40) m/uL Neutrophils # 15.2 H (1.3-7.7) k/uL Lymphocytes # 0.8 L (1.0-4.8) k/uL BUN 36 H (7-17) mg/dL Creatinine 1.10 H (0.52-1.04) mg/dL Glucose 130 H (74-99) mg/dL Total Creatine Kinase <20 L (30-135) U/L Urine Protein (Negative) Urine Blood (Negative) Urine Nitrite (Negative) Ur Leukocyte Esterase (Negative) Urine WBC (0-5) /hpf Urine WBC Clumps (None) /hpf Urine Bacteria (None) /hpf 10/31/16 Range/Units 03:00 WBC (3.8-10.6) k/uL RBC (3.80-5.40) m/uL Neutrophils # (1.3-7.7) k/uL Lymphocytes # (1.0-4.8) k/uL BUN (7-17) mg/dL Creatinine (0.52-1.04) mg/dL Glucose (74-99) mg/dL Total Creatine Kinase (30-135) U/L Urine Protein Trace H (Negative) Urine Blood Trace H (Negative) Urine Nitrite Positive H (Negative) Ur Leukocyte Esterase Large H (Negative) Urine WBC 103 H (0-5) /hpf Urine WBC Clumps Many H (None) /hpf Urine Bacteria Many H (None) /hpf Thrombosis Risk Factor Assmnt - Choose All That Apply Any of the Below Risk Factors Present?: Yes Each Factor Represents 1 point: Abnormal pulmonary function (COPD), Medical pt on bed rest, Obesity (BMI >25), Serious lung disease incl. pneumonia (< 1month) Other Risk Factors: Yes Each Risk Factor Represents 2 Points: Malignancy Each Risk Factor Represents 3 Points: History of DVT/PE Other congenital or acquired thrombophilia - If yes, enter type in comment: No Thrombosis Risk Factor Assessment Total Risk Factor Score: 9 Thrombosis Risk Factor Assessment Level: High Risk Assessment and Plan Plan: 1. Acute mental status changes likely a metabolic encephalopathy possibly related to pneumonia or UTI. Also could be related to her oxygen tank not working appropriately. She was having some hypoxemia with oxygen level dropping into the 80s per family members. Consult social work to make sure patient has working oxygen tank at home 2. Pneumonia: Awaiting final chest x-ray report. Patient currently on Levaquin 3. UTI: Check urine culture. Patient has had recurrent UTIs. Continue Levaquin for now 4. Left shoulder pain. Consult orthopedics. Check shoulder x-ray 5. History of essential hypertension resume blood pressure medications 6. Hyperlipidemia continue statin 7. Hypothyroidism continue Synthroid Prophylaxis Pepcid and DVT prophylaxis subcu heparin Time with Patient: Greater than 30 (Greater than 50% of the total time spent in counseling and coordination of care.I performed an examination of the patient and discussed their management with the physician Cooler Worker. I have reviewed the Physician Cooler Worker's notes and agree with the documented findings and plan of care)
--- NOTE | 2016-10-31 15:51 | XR ---
EXAMINATION TYPE: XR shoulder complete LT DATE OF EXAM: 10/31/2016 COMPARISON: NONE HISTORY: 89 year-old female left shoulder pain since recent fall TECHNIQUE: 3 views FINDINGS: There is end-stage degenerative change at the left glenohumeral joint. There is [id number] articula tion with bony remodeling and extensive subchondral sclerosis. A questionable surgical neck fracture on the frontal view is excluded on the Grashey view. Opacities in the lungs could relate to pulmonary vascular congestion with left-sided pleural effusion and adjacent atelectasis and/or consolidation. IMPRESSION: 1. No displaced fracture seen. 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 2. Changes in the visualized left lung as above.
--- NOTE | 2016-10-31 16:10 | P.CNOR ---
History of Present Illness - HPI Consult date: 10/31/16 History of present illness: This is an 89-year-old female who is admitted for pneumonia and urinary tract infection. Orthopedics is consulted to evaluate the patient's left shoulder pain. Patient states she has had shoulder pain that has persisted after a fall 6 or 7 months ago. Patient states she was evaluated at the time of fall and there was no fracture or injury to the left shoulder. Family who is also present in the room states that she has not complained much about the left shoulder pain until the last 2 or 3 days. Patient denies any new injury. Patient states she has pain with lifting the left upper extremity and needs the help of her right hand. Patient states that heating pad to the left shoulder has helped in the past. Patient denies any swelling, erythema or warmth to the left shoulder. Patient denies any history of neck pain, radiculopathy, numbness , weakness or tingling. Review of Systems See HPI. Past Medical History Past Medical History: Cancer, Heart Failure, COPD, Deep Vein Thrombosis (DVT), Eye Disorder, Hearing Disorder / Deafness, Hyperlipidemia, Hypertension, Musculoskeletal Disorder, Neurologic Disorder, Osteoarthritis (OA), Pneumonia, Skin Disorder, Thyroid Disorder Additional Past Medical History / Comment(s): Numerous right hip prostheis hip dislocations, scoliosis, osteoporosis, 08/2016 echo showing severe pulmonary htn and moderate aortic stenosis, murmur, UTIs- 8-8-15 uti(e coli) and also ecoli in blood, toxo metabolic encephalopathy, Guilliane [place], cataracts, [place], rash from hip brace in the past, hemorrhoids, skin cancer with removal, O2 at 3L/NC ATC. History of Any Multi-Drug Resistant Organisms: ESBL, Other MDRO Year Discovered:: 02/29/16, 09/02/16 MDRO Source:: URINE KL. PNEUMONIAE URINE 02/29/16, Enterobacter aerogenes urine 09/02/16 Past Surgical History: Hysterectomy, Joint Replacement Additional Past Surgical History / Comment(s): Right Hip replacement and multiple dislocations/closed reductions, skin cancer removal. Additional Past Anesthesia/Blood Transfusion Reaction / Comm: patient takes a long time to wake up after anesthesia Smoking Status: Never smoker - Past Family History Father Family Medical History: Myocardial Infarction ([place]) Additional Family Medical History / Comment(s): heart disease Mother Family Medical History: Hypertension, Myocardial Infarction ([place]) Additional Family Medical History / Comment(s): heart disease Medications and Allergies Home Medications Medication Instructions Recorded Confirmed Type Atenolol 25 mg PO DAILY 11/25/14 10/31/16 History Atorvastatin [Lipitor] 20 mg PO HS 11/25/14 10/31/16 History Levothyroxine Sodium [Synthroid] 75 mcg PO DAILY@0600 11/25/14 10/31/16 History Risedronate Sodium [Actonel] 150 mg PO Q28D 11/25/14 10/31/16 History hydrALAZINE HCL 25 mg PO BID 11/25/14 10/31/16 History Magnesium Hydroxide [Milk of 2,400 mg PO DAILY PRN 08/30/16 10/31/16 History Magnesia] ALPRAZolam [Xanax] 0.25 mg PO HS PRN 10/31/16 10/31/16 History Allergies Allergy/AdvReac Type Severity Reaction Status Date / Time No Known Allergies Allergy Verified 10/31/16 08:18 Physical Examination On inspection there is mild swelling to the anterior aspect of the left shoulder. No erythema, no warmth, no ecchymosis. Patient has generalized tenderness to palpation to the left shoulder. Patient has limited active range of motion and needs the right arm to assist. Patient is able to forward flex the left arm to approximately 90 before she has pain. Passive range of motion is similar. Patient has full range of motion at the elbow, wrist and hands. Sensation is intact. Strength is 4/5 and there is some pain with empty can test. Radial pulses are 2+ bilaterally. Results X-ray of the left shoulder is pending. - Labs Labs: Abnormal Lab Results - Last 24 Hours (Table) 10/31/16 10/31/16 10/31/16 Range/Units 00:30 00:30 00:30 WBC 16.9 H (3.8-10.6) k/uL RBC 3.68 L (3.80-5.40) m/uL Neutrophils # 15.2 H (1.3-7.7) k/uL Lymphocytes # 0.8 L (1.0-4.8) k/uL BUN 36 H (7-17) mg/dL Creatinine 1.10 H (0.52-1.04) mg/dL Glucose 130 H (74-99) mg/dL Total Creatine Kinase <20 L (30-135) U/L Urine Protein (Negative) Urine Blood (Negative) Urine Nitrite (Negative) Ur Leukocyte Esterase (Negative) Urine WBC (0-5) /hpf Urine WBC Clumps (None) /hpf Urine Bacteria (None) /hpf 10/31/16 Range/Units 03:00 WBC (3.8-10.6) k/uL RBC (3.80-5.40) m/uL Neutrophils # (1.3-7.7) k/uL Lymphocytes # (1.0-4.8) k/uL BUN (7-17) mg/dL Creatinine (0.52-1.04) mg/dL Glucose (74-99) mg/dL Total Creatine Kinase (30-135) U/L Urine Protein Trace H (Negative) Urine Blood Trace H (Negative) Urine Nitrite Positive H (Negative) Ur Leukocyte Esterase Large H (Negative) Urine WBC 103 H (0-5) /hpf Urine WBC Clumps Many H (None) /hpf Urine Bacteria Many H (None) /hpf H & H 10/31/16 Range/Units 00:30 Hgb 11.5 (11.4-16.0) gm/dL Hct 35.7 (34.0-46.0) % Coagulation 10/31/16 Range/Units 00:30 INR 1.0 (<1.1) Result Diagrams: 10/31/16 00:30 10/31/16 00:30 Assessment and Plan (1) Left shoulder pain Status: Acute Plan: #1. Recommendations pending x-ray results. #2. No surgical intervention planned at this time, will follow the patient closely.
[2016-10-31] MEDS: ATORVASTATIN 20 MG TAB PO SCH (20:34)
[2016-11-01] MEDS: LEVOFLOXACIN 750MG-D5W PMX 750 MG in DEXTROSE/WATER 1 150ML.BAG IVPB SCH (05:40)
[2016-11-01] MEDS: LEVOTHYROXINE 75 MCG TAB PO SCH (06:01)
[2016-11-01 07:49] LABS: Basophils % (A) 0 %; CH 30.5; CHCM 30.3; Eosinophils # (A) 0.1 k/uL (0-0.7); Eosinophils % (A) 1 %; HCT 30.7 % (34.0-46.0); HDW 2.91; Hypochromasia Marked; Luc % (Auto) 1; Lymphocytes # (A) 0.9 k/uL (1.0-4.8); Lymphocytes % (A) 13 %; MCH 31.9 pg (25.0-35.0); MCHC 31.6 g/dL (31.0-37.0); MCV 100.9 fL (80.0-100.0); Macrocytosis Slight; Mean Platelet Volume 7.4; Monocytes # (A) 0.3 k/uL (0-1.0); Monocytes % (A) 4 %; Neutrophils # (A) 5.9 k/uL (1.3-7.7); Neutrophils % (A) 81 %; RBC 3.05 m/uL (3.80-5.40); RDW 14.4 % (11.5-15.5); WBC 7.3 k/uL (3.8-10.6); WBC (Perox) 6.98
[2016-11-01 07:52] LABS: HGB 9.7 gm/dL (11.4-16.0)
[2016-11-01 07:56] LABS: ALT 20 U/L (9-52); AST 16 U/L (14-36); Alkaline Phosphatase 41 U/L (38-126); Anion Gap 6 mmol/L; Blood Urea Nitrogen 20 mg/dL (7-17); Calcium 8.3 mg/dL (8.4-10.2); Carbon Dioxide 24 mmol/L (22-30); Chloride 110 mmol/L (98-107); Glucose 94 mg/dL (74-99); Non-African American GFR(MDRD) 55 (>60 ml/min/1.73 sqM); Potassium 3.8 mmol/L (3.5-5.1); Sodium 140 mmol/L (137-145); Total Bilirubin 0.7 mg/dL (0.2-1.3); Total Protein 5.2 g/dL (6.3-8.2)
[2016-11-01] MEDS: FUROSEMIDE 20 MG TAB PO SCH (09:30)
[2016-11-01] MEDS: ATENOLOL 25 MG TAB PO SCH (09:30)
[2016-11-01] MEDS: PIPERACILLIN-TAZOBACTAM 3.375 GM in DEXTROSE/WATER 1 50ML.BAG IVPB SCH ×3 (09:30→23:41)
[2016-11-01] MEDS: FAMOTIDINE 20 MG TAB PO SCH (09:30)
[2016-11-01] MEDS: hydrALAZINE HCL 25 MG TAB PO SCH ×2 (09:31→21:40)
[2016-11-01] MEDS: HEPARIN SODIUM,PORCINE 5,000 UNIT/ML 1 ML VIAL SQ SCH ×2 (09:31→21:41)
[2016-11-01] MEDS: MENTHOL-ZINC OXIDE OINT 113 GM TUBE TOPICAL SCH (09:32)
[2016-11-01] MEDS: SODIUM CHLORIDE 0.9% 1,000 ML IV SCH ×2 (09:35→21:43)
--- NOTE | 2016-11-01 10:10 | P.PN ---
Subjective Principal diagnosis: Left shoulder pain This is a well-appearing 89-year-old female who was admitted for pneumonia and urinary tract infection. Orthopedics was consulted for left shoulder pain. Patient states today her symptoms and the left shoulder have improved almost completely. Patient states when she rolls to her left side in bed she does not feel shoulder pain like she did yesterday. Patient denies any new complaints today. Patient denies any numbness, weakness, tingling. Objective - Vital Signs Vital signs: Vital Signs Temp 97.7 F 11/01/16 07:00 Pulse 72 11/01/16 07:00 Resp 18 11/01/16 07:00 BP 121/58 11/01/16 07:00 Pulse Ox 91 L 11/01/16 07:00 Intake & Output 10/31/16 11/01/16 11/01/16 18:59 06:59 18:59 Intake Total 240 1440 Balance 240 1440 Intake: Intake, IV Titration 850 Amount Piperacillin-Tazobactam 3 50 .375 gm In Dextrose/Water 1 50ml.bag @ 12.5 mls/hr IVPB Q8HR [facility] Rx#: [id number] Sodium Chloride 0.9% 1, 800 000 ml @ 100 mls/hr IV . Q10H [facility] Rx#:[id number] Oral 240 590 Other: Voiding Method Diaper Incontinent # Voids 3 2 # Bowel Movements 2 - Exam Mild tenderness to palpation of the left shoulder. Patient has improved range of motion this morning. There is no pain with range of motion. Range of motion is limited with forward flexion to ~90. No swelling, erythema or ecchymosis. Neurovascular status intact. - Labs CBC & Chem 7: 11/01/16 07:12 11/01/16 07:12 Labs: Abnormal Lab Results - Last 24 Hours (Table) 11/01/16 11/01/16 Range/Units 07:12 07:12 RBC 3.05 L (3.80-5.40) m/uL Hgb 9.7 L D (11.4-16.0) gm/dL Hct 30.7 L (34.0-46.0) % MCV 100.9 H (80.0-100.0) fL Lymphocytes # 0.9 L (1.0-4.8) k/uL Chloride 110 H (98-107) mmol/L BUN 20 H (7-17) mg/dL Calcium 8.3 L (8.4-10.2) mg/dL Total Protein 5.2 L (6.3-8.2) g/dL Albumin 2.5 L (3.5-5.0) g/dL Microbiology - Last 24 Hours (Table) 10/31/16 00:30 Blood Culture - Preliminary Blood No Growth after 24 hours 10/31/16 15:30 Urine Culture - Preliminary Urine,Voided Assessment and Plan (1) Left shoulder pain Status: Acute (2) Osteoarthritis of left shoulder Status: Acute Plan: #1. X-rays are reviewed of the left shoulder showing no acute fracture or dislocation. Severe osteoarthritis is present. # 2. Patient reports little to no pain in the left shoulder today, patient may follow up as an outpatient in the office and may benefit from physical therapy in the future. Patient would like to hold off on physical therapy today since her symptoms have improved. #3. No surgical intervention planned at this time.
--- NOTE | 2016-11-01 11:04 | P.PN ---
Subjective This is an 89-year-old female who is admitted for pneumonia and urinary tract infection. Orthopedics is consulted to evaluate the patient's left shoulder pain. Patient states she has had shoulder pain that has persisted after a fall 6 or 7 months ago. Patient states she was evaluated at the time of fall and there was no fracture or injury to the left shoulder. Family who is also present in the room states that she has not complained much about the left shoulder pain until the last 2 or 3 days. Patient denies any new injury. Patient states she has pain with lifting the left upper extremity and needs the help of her right hand. Patient states that heating pad to the left shoulder has helped in the past. Patient denies any swelling, erythema or warmth to the left shoulder. Patient denies any history of neck pain, radiculopathy, numbness , weakness or tingling. Objective - Vital Signs Vital signs: Vital Signs Temp 97.7 F 11/01/16 07:00 Pulse 72 11/01/16 07:00 Resp 18 11/01/16 07:00 BP 121/58 11/01/16 07:00 Pulse Ox 91 L 11/01/16 07:00 Intake & Output 10/31/16 11/01/16 11/01/16 18:59 06:59 18:59 Intake Total 240 1440 Balance 240 1440 Intake: Intake, IV Titration 850 Amount Piperacillin-Tazobactam 3 50 .375 gm In Dextrose/Water 1 50ml.bag @ 12.5 mls/hr IVPB Q8HR [facility] Rx#: [id number] Sodium Chloride 0.9% 1, 800 000 ml @ 100 mls/hr IV . Q10H [facility] Rx#:[id number] Oral 240 590 Other: Voiding Method Diaper Incontinent # Voids 3 2 # Bowel Movements 2 - Exam In general patient is alert and oriented 3 in no apparent distress HEENT head normocephalic and atraumatic Neck is supple no JVD no goiter no lymphadenopathy Chest exam reveals a few scattered crackles no wheezing Cardiac exam reveals regular heart sounds S1 and S2 no gallops no murmurs Abdomen is soft, nontender no organomegaly with normal bowel sounds Extremity exam reveals no edema no cyanosis or clubbing - Labs CBC & Chem 7: 11/01/16 07:12 11/01/16 07:12 Labs: Abnormal Lab Results - Last 24 Hours (Table) 07/15/17 07/15/17 Range/Units 07:12 07:12 RBC 3.05 L (3.80-5.40) m/uL Hgb 9.7 L D (11.4-16.0) gm/dL Hct 30.7 L (34.0-46.0) % MCV 100.9 H (80.0-100.0) fL Lymphocytes # 0.9 L (1.0-4.8) k/uL Chloride 110 H (98-107) mmol/L BUN 20 H (7-17) mg/dL Calcium 8.3 L (8.4-10.2) mg/dL Total Protein 5.2 L (6.3-8.2) g/dL Albumin 2.5 L (3.5-5.0) g/dL Microbiology - Last 24 Hours (Table) 10/31/16 00:30 Blood Culture - Preliminary Blood No Growth after 24 hours 10/31/16 15:30 Urine Culture - Preliminary Urine,Voided Assessment and Plan Plan: 1. Acute mental status changes likely a metabolic encephalopathy possibly related to pneumonia or UTI. Also could be related to her oxygen tank not working appropriately. She was having some hypoxemia with oxygen level dropping into the 80s per family members. Consult social work to make sure patient has working oxygen tank at home 2. Pneumonia: Awaiting final chest x-ray report. Patient currently on Levaquin 3. UTI: Check urine culture. Patient has had recurrent UTIs. Continue Levaquin for now 4. Left shoulder pain. Consult orthopedics. Check shoulder x-ray 5. History of essential hypertension resume blood pressure medications 6. Hyperlipidemia continue statin 7. Hypothyroidism continue Synthroid
[2016-11-01] MEDS: ATORVASTATIN 20 MG TAB PO SCH (21:40)
[2016-11-02] MEDS: LEVOTHYROXINE 75 MCG TAB PO SCH (06:22)
[2016-11-02] MEDS: FAMOTIDINE 20 MG TAB PO SCH (07:57)
[2016-11-02] MEDS: SODIUM CHLORIDE 0.9% 1,000 ML IV SCH ×2 (07:57→20:43)
[2016-11-02] MEDS: FUROSEMIDE 20 MG TAB PO SCH (07:57)
[2016-11-02] MEDS: ATENOLOL 25 MG TAB PO SCH (07:57)
[2016-11-02] MEDS: PIPERACILLIN-TAZOBACTAM 3.375 GM in DEXTROSE/WATER 1 50ML.BAG IVPB SCH ×2 (07:57→17:43)
[2016-11-02] MEDS: HEPARIN SODIUM,PORCINE 5,000 UNIT/ML 1 ML VIAL SQ SCH ×2 (07:57→20:35)
[2016-11-02] MEDS: hydrALAZINE HCL 25 MG TAB PO SCH ×2 (07:57→20:35)
--- NOTE | 2016-11-02 09:21 | P.PN ---
Subjective Principal diagnosis: Left shoulder pain This is a well-appearing 89-year-old female who was admitted for pneumonia and urinary tract infection. Orthopedics was consulted for left shoulder pain. Patient states today her symptoms are tolerable and the pain is intermittent. Patient denies any new complaints today. Patient denies any numbness, weakness , tingling. Objective - Vital Signs Vital signs: Vital Signs Temp 97.3 F L 11/02/16 07:00 Pulse 82 11/02/16 07:00 Resp 18 11/02/16 07:00 BP 138/62 11/02/16 07:00 Pulse Ox 99 11/02/16 07:00 Intake & Output 11/01/16 11/02/16 11/02/16 18:59 06:59 18:59 Intake Total 795 Balance 795 Intake: IV 675 Piperacillin-Tazobactam 3 75 .375 gm In Dextrose/Water 1 50ml.bag @ 12.5 mls/hr IVPB Q8HR [facility] Rx#: [id number] ns@100 600 Oral 120 Other: Voiding Method Diaper Toilet Incontinent Incontinent # Voids 1 # Bowel Movements 1 - Exam Mild tenderness to palpation of the left shoulder. Range of motion is limited with forward flexion to ~90. No swelling, erythema or ecchymosis. Neurovascular status intact. - Labs CBC & Chem 7: 11/01/16 07:12 11/01/16 07:12 Labs: Microbiology - Last 24 Hours (Table) 10/31/16 00:30 Blood Culture - Preliminary Blood No Growth after 48 hours 10/31/16 15:30 Urine Culture - Final Urine,Voided Assessment and Plan (1) Left shoulder pain Status: Acute (2) Osteoarthritis of left shoulder Status: Acute Plan: #1. Patient may follow up as an outpatient in the office and may benefit from physical therapy in the future. Patient would like to hold off on physical therapy unless her symptoms become worse. #2. No surgical intervention planned at this time.
[2016-11-02 09:36] LABS: Basophils % (A) 1 %; CH 30.7; CHCM 30.1; Eosinophils # (A) 0.1 k/uL (0-0.7); Eosinophils % (A) 2 %; HCT 34.2 % (34.0-46.0); HGB 10.5 gm/dL (11.4-16.0); Hypochromasia Marked; Luc # (Auto) 0.08; Luc % (Auto) 2; Lymphocytes % (A) 19 %; MCH 31.3 pg (25.0-35.0); MCHC 30.6 g/dL (31.0-37.0); MCV 102.3 fL (80.0-100.0); Macrocytosis Slight; Mean Platelet Volume 7.4; Monocytes # (A) 0.3 k/uL (0-1.0); Monocytes % (A) 5 %; Neutrophils # (A) 3.6 k/uL (1.3-7.7); Neutrophils % (A) 72 %; RBC 3.34 m/uL (3.80-5.40); RDW 14.7 % (11.5-15.5); WBC (Perox) 5.07
[2016-11-02 09:54] LABS: Calcium 8.8 mg/dL (8.4-10.2); Potassium 3.7 mmol/L (3.5-5.1); Total Bilirubin 0.7 mg/dL (0.2-1.3); Total Protein 5.9 g/dL (6.3-8.2)
[2016-11-02] MEDS: MENTHOL-ZINC OXIDE OINT 113 GM TUBE TOPICAL SCH (12:05)
--- NOTE | 2016-11-02 14:39 | P.PN ---
Subjective This is an 89-year-old female who is admitted for pneumonia and urinary tract infection. Orthopedics is consulted to evaluate the patient's left shoulder pain. Patient states she has had shoulder pain that has persisted after a fall 6 or 7 months ago. Patient states she was evaluated at the time of fall and there was no fracture or injury to the left shoulder. Family who is also present in the room states that she has not complained much about the left shoulder pain until the last 2 or 3 days. Patient denies any new injury. Patient states she has pain with lifting the left upper extremity and needs the help of her right hand. Patient states that heating pad to the left shoulder has helped in the past. Patient denies any swelling, erythema or warmth to the left shoulder. Patient denies any history of neck pain, radiculopathy, numbness , weakness or tingling. On 11/02/2016 patient is lying in bed comfortably she is complaining of shoulder pain otherwise no complaints at this time she has some dry cough she was and able to produce a sputum sample Objective - Vital Signs Vital signs: Vital Signs Temp 97.3 F L 11/02/16 07:00 Pulse 82 11/02/16 07:00 Resp 18 11/02/16 07:00 BP 138/62 11/02/16 07:00 Pulse Ox 99 11/02/16 07:00 Intake & Output 11/01/16 11/02/16 11/02/16 18:59 06:59 18:59 Intake Total 795 Balance 795 Intake: IV 675 Piperacillin-Tazobactam 3 75 .375 gm In Dextrose/Water 1 50ml.bag @ 12.5 mls/hr IVPB Q8HR [facility] Rx#: [id number] ns@100 600 Oral 120 Other: Voiding Method Diaper Toilet Toilet Incontinent Incontinent Incontinent # Voids 1 1 # Bowel Movements 1 1 - Exam In general patient is alert and oriented 3 in no apparent distress HEENT head normocephalic and atraumatic Neck is supple no JVD no goiter no lymphadenopathy Chest exam reveals a few scattered crackles no wheezing Cardiac exam reveals regular heart sounds S1 and S2 no gallops no murmurs Abdomen is soft, nontender no organomegaly with normal bowel sounds Extremity exam reveals no edema no cyanosis or clubbing - Labs CBC & Chem 7: 11/02/16 08:31 11/02/16 08:31 Labs: Abnormal Lab Results - Last 24 Hours (Table) 11/02/16 11/02/16 Range/Units 08:31 08:31 RBC 3.34 L (3.80-5.40) m/uL Hgb 10.5 L (11.4-16.0) gm/dL MCV 102.3 H (80.0-100.0) fL MCHC 30.6 L (31.0-37.0) g/dL Chloride 108 H (98-107) mmol/L Creatinine 1.10 H (0.52-1.04) mg/dL Glucose 135 H (74-99) mg/dL Total Protein 5.9 L (6.3-8.2) g/dL Albumin 2.9 L (3.5-5.0) g/dL Microbiology - Last 24 Hours (Table) 10/31/16 00:30 Blood Culture - Preliminary Blood No Growth after 48 hours 10/31/16 15:30 Urine Culture - Final Urine,Voided Assessment and Plan Plan: 1. Acute mental status changes likely a metabolic encephalopathy possibly related to pneumonia or UTI. Also could be related to her oxygen tank not working appropriately. She was having some hypoxemia with oxygen level dropping into the 80s per family members. Consult social work to make sure patient has working oxygen tank at home 2. Pneumonia: Awaiting final chest x-ray report. Patient currently on Levaquin 3. UTI: Check urine culture. Patient has had recurrent UTIs. Continue Levaquin for now 4. Left shoulder pain. Consult orthopedics. Check shoulder x-ray 5. History of essential hypertension resume blood pressure medications 6. Hyperlipidemia continue statin 7. Hypothyroidism continue Synthroid
--- NOTE | 2016-11-02 15:06 | XR ---
EXAMINATION TYPE: XR chest 1V portable DATE OF EXAM: 11/02/2016 COMPARISON: 10/31/2016 HISTORY: Pneumonia TECHNIQUE: Single frontal view of the chest is obtained. FINDINGS: There is no prevascular congestion. There is some patchy consolidation in the right lower lobe. Heart appears enlarged. 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
[2016-11-02] MEDS: ATORVASTATIN 20 MG TAB PO SCH (20:35)
[2016-11-03] MEDS: PIPERACILLIN-TAZOBACTAM 3.375 GM in DEXTROSE/WATER 1 50ML.BAG IVPB SCH ×4 (00:12→23:43)
[2016-11-03] MEDS: SODIUM CHLORIDE 0.9% 1,000 ML IV SCH (05:36)
[2016-11-03] MEDS: LEVOFLOXACIN 750MG-D5W PMX 750 MG in DEXTROSE/WATER 1 150ML.BAG IVPB SCH (05:37)
[2016-11-03] MEDS: LEVOTHYROXINE 75 MCG TAB PO SCH (05:59)
[2016-11-03 07:27] LABS: Basophils % (A) 1 %; CH 30.5; CHCM 30.3; Eosinophils # (A) 0.1 k/uL (0-0.7); Eosinophils % (A) 3 %; HCT 32.1 % (34.0-46.0); HDW 3.05; HGB 10.1 gm/dL (11.4-16.0); Hypochromasia Marked; Luc # (Auto) 0.08; Luc % (Auto) 2; Lymphocytes # (A) 0.7 k/uL (1.0-4.8); Lymphocytes % (A) 15 %; MCH 31.8 pg (25.0-35.0); MCHC 31.5 g/dL (31.0-37.0); Macrocytosis Slight; Mean Platelet Volume 7.2; Monocytes # (A) 0.3 k/uL (0-1.0); Monocytes % (A) 6 %; Neutrophils # (A) 3.2 k/uL (1.3-7.7); Neutrophils % (A) 74 %; RBC 3.17 m/uL (3.80-5.40); RDW 14.7 % (11.5-15.5); WBC 4.4 k/uL (3.8-10.6); WBC (Perox) 4.56
[2016-11-03 07:46] LABS: ALT 31 U/L (9-52); AST 21 U/L (14-36); Alkaline Phosphatase 53 U/L (38-126); Anion Gap 9 mmol/L; Blood Urea Nitrogen 13 mg/dL (7-17); Calcium 8.4 mg/dL (8.4-10.2); Carbon Dioxide 26 mmol/L (22-30); Chloride 109 mmol/L (98-107); Glucose 109 mg/dL (74-99); Non-African American GFR(MDRD) 52 (>60 ml/min/1.73 sqM); Potassium 3.6 mmol/L (3.5-5.1); Sodium 144 mmol/L (137-145); Total Bilirubin 0.5 mg/dL (0.2-1.3); Total Protein 5.5 g/dL (6.3-8.2)
[2016-11-03] MEDS: HEPARIN SODIUM,PORCINE 5,000 UNIT/ML 1 ML VIAL SQ SCH ×2 (08:52→20:23)
[2016-11-03] MEDS: FUROSEMIDE 20 MG TAB PO SCH (08:52)
[2016-11-03] MEDS: hydrALAZINE HCL 25 MG TAB PO SCH ×2 (08:52→20:23)
[2016-11-03] MEDS: ATENOLOL 25 MG TAB PO SCH (08:53)
[2016-11-03] MEDS: FAMOTIDINE 20 MG TAB PO SCH (08:53)
[2016-11-03] MEDS: MENTHOL-ZINC OXIDE OINT 113 GM TUBE TOPICAL SCH (08:55)
[2016-11-03] MEDS ORDERED: FUROSEMIDE 10 MG/ML 2 ML VIAL IV ONE (13:48)
--- NOTE | 2016-11-03 13:49 | P.PN ---
Subjective This is an 89-year-old female who is admitted for pneumonia and urinary tract infection. Orthopedics is consulted to evaluate the patient's left shoulder pain. Patient states she has had shoulder pain that has persisted after a fall 6 or 7 months ago. Patient states she was evaluated at the time of fall and there was no fracture or injury to the left shoulder. Family who is also present in the room states that she has not complained much about the left shoulder pain until the last 2 or 3 days. Patient denies any new injury. Patient states she has pain with lifting the left upper extremity and needs the help of her right hand. Patient states that heating pad to the left shoulder has helped in the past. Patient denies any swelling, erythema or warmth to the left shoulder. Patient denies any history of neck pain, radiculopathy, numbness , weakness or tingling. On 11/02/2016 patient is lying in bed comfortably she is complaining of shoulder pain otherwise no complaints at this time she has some dry cough she was and able to produce a sputum sample 11/03/2016 patient lying in bed comfortably. She feels ready for discharge. Denies any chest pain or shortness of breath. Still has mild nonproductive cough. Unable to produce sputum. Denies any nausea or vomiting. Reports bowel movements. Denies any difficulty urinating. Reports that the burning with urination has improved. Patient does appear ready for discharge. However , still awaiting radiology reports they have not been available since admission. Our tech support has been notified and a ticket has been placed. Objective - Vital Signs Vital signs: Vital Signs Temp 97.9 F 11/03/16 07:00 Pulse 55 L 11/03/16 10:27 Resp 16 11/03/16 07:00 BP 127/89 11/03/16 07:00 Pulse Ox 96 11/03/16 10:27 Intake & Output 11/02/16 11/03/16 11/03/16 18:59 06:59 18:59 Intake Total 150 Balance 150 Intake: IV 50 Piperacillin-Tazobactam 3 50 .375 gm In Dextrose/Water 1 50ml.bag @ 12.5 mls/hr IVPB Q8HR [facility] Rx#: [id number] Oral 100 Other: Voiding Method Toilet Toilet Toilet Incontinent Incontinent Incontinent # Voids 2 1 1 # Bowel Movements 1 - Exam Head normocephalic Neck supple Lungs clear to auscultation bilaterally no wheezing or crackles Heart regular rate and rhythm S1-S2, no rub or gallop Abdomen is soft nontender nondistended positive bowel sounds no hepatosplenomegaly Extremities no edema Neuro alert and orientated to 3 - Labs CBC & Chem 7: 11/03/16 07:00 11/03/16 07:00 Labs: Abnormal Lab Results - Last 24 Hours (Table) 11/03/16 11/03/16 Range/Units 07:00 07:00 RBC 3.17 L (3.80-5.40) m/uL Hgb 10.1 L (11.4-16.0) gm/dL Hct 32.1 L (34.0-46.0) % MCV 101.0 H (80.0-100.0) fL Lymphocytes # 0.7 L (1.0-4.8) k/uL Chloride 109 H (98-107) mmol/L Glucose 109 H (74-99) mg/dL Total Protein 5.5 L (6.3-8.2) g/dL Albumin 2.7 L (3.5-5.0) g/dL Microbiology - Last 24 Hours (Table) 10/31/16 00:30 Blood Culture - Preliminary Blood No Growth after 72 hours Assessment and Plan Plan: 1. Acute mental status changes likely a metabolic encephalopathy possibly related to pneumonia and UTI. Also could be related to her oxygen tank not working appropriately. She was having some hypoxemia with oxygen level dropping into the 80s per family members. Oxygen tank has been replaced at [facility] 2. Pneumonia: Patient currently on Levaquin and Zosyn. Chest x-ray from yesterday shows evidence for combined congestive heart failure and right lower lobe pneumonia without change compared to last exam 3. UTI: Check urine culture. Patient has had recurrent UTIs. Continue Levaquin for now. Urine culture negative 4. Left shoulder pain. Consult orthopedics. Check shoulder x-ray is evaluated by orthopedics no surgical intervention required 5. History of essential hypertension resume blood pressure medications 6. Hyperlipidemia continue statin 7. Hypothyroidism continue Synthroid 8. Volume overload. Hep-Lock IV fluids and give 1 dose of Lasix 20 mg IV push GI Prophylaxis Pepcid and DVT prophylaxis subcu heparin I performed an examination of the patient and discussed their management with the physician 3D Animator. I have reviewed the Physician 3D Animator's notes and agree with the documented findings and plan of care
[2016-11-03 14:40] LABS: % Iron Saturation 24.1 % (20-50)
[2016-11-03] MEDS: ATORVASTATIN 20 MG TAB PO SCH (20:23)
[2016-11-04] MEDS: LEVOTHYROXINE 75 MCG TAB PO SCH (06:14)
[2016-11-04 07:46] VITALS: RESP 20; TEMP 96
[2016-11-04 08:08] LABS: Basophils % (A) 1 %; CH 30.5; CHCM 30.9; Eosinophils # (A) 0.1 k/uL (0-0.7); Eosinophils % (A) 3 %; HCT 32.6 % (34.0-46.0); HDW 3.13; HGB 10.2 gm/dL (11.4-16.0); Hypochromasia Moderate; Luc # (Auto) 0.12; Luc % (Auto) 3; Lymphocytes % (A) 22 %; MCH 31.1 pg (25.0-35.0); MCHC 31.3 g/dL (31.0-37.0); MCV 99.3 fL (80.0-100.0); Mean Platelet Volume 7.2; Monocytes # (A) 0.3 k/uL (0-1.0); Monocytes % (A) 6 %; Neutrophils % (A) 66 %; RBC 3.28 m/uL (3.80-5.40); RDW 14.6 % (11.5-15.5); WBC 4.5 k/uL (3.8-10.6); WBC (Perox) 4.73
[2016-11-04 08:27] LABS: Calcium 8.8 mg/dL (8.4-10.2); Potassium 3.5 mmol/L (3.5-5.1); Total Bilirubin 0.6 mg/dL (0.2-1.3); Total Protein 5.8 g/dL (6.3-8.2)
[2016-11-04] MEDS: hydrALAZINE HCL 25 MG TAB PO SCH (08:33)
[2016-11-04] MEDS: PIPERACILLIN-TAZOBACTAM 3.375 GM in DEXTROSE/WATER 1 50ML.BAG IVPB SCH (08:33)
[2016-11-04] MEDS: HEPARIN SODIUM,PORCINE 5,000 UNIT/ML 1 ML VIAL SQ SCH (08:33)
[2016-11-04] MEDS: MENTHOL-ZINC OXIDE OINT 113 GM TUBE TOPICAL SCH (08:33)
[2016-11-04] MEDS: FAMOTIDINE 20 MG TAB PO SCH (08:34)
[2016-11-04] MEDS: FUROSEMIDE 20 MG TAB PO SCH (08:34)
[2016-11-04] MEDS: ATENOLOL 25 MG TAB PO SCH (08:34)
--- NOTE | 2016-11-04 10:45 | CDI ---
In responding to this query, please exercise your independent professional judgment. The [facility] Coding Staff and Clinical Documentation Specialists appreciate your assistance in clarifying documentation, maintaining compliance with coding guidelines, accurately documenting patients condition and capturing severity of illness. The fact that a question is asked does not imply that any particular answer is desired or expected. Communication forms are a method of clarifying documentation and are not made part of the Legal Health Record. Thank you in advance for your clarification. Last Revision, June 2016 Walt Stephen [address] [facility] [address] Documentation Clarification Form Date: 11/04/2016 10:21:00 AM From: Evelina Donald RN, CCDS Admit Date: 10/31/2016 2:18:00 AM Patient Name: Jil Juarez Visit Number: [id number] Discharge Date: Dr. Mirta Collins CHF is documented in the past medical history and progress notes on 11/03/16. 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 VS/Pulse OX: 141/58 63 18 98.7 91 % 3/L NC Lungs per ER exam: Rales, bilateral bases Echocardiogram Results: 09/03/16 EF 60- 65 % Treatment: IV Lasix X1, then PO Daily In your professional opinion, can you please clarify the acuity and type of CHF if known? Systolic Heart Failure: Acute Chronic Acute on Chronic Diastolic Heart Failure: Acute Chronic Acute on Chronic Systolic & Diastolic Heart Failure: Acute Chronic Acute on Chronic Unable to determine Other, please specify Please document in your progress notes and discharge summary in order to capture severity of illness and risk of mortality. Include clinical findings that support your diagnosis. FYI: Press F11 to launch patient chart. Place X here if this finding has no clinical significance, is not applicable or if you are not able to provide any additional documentation. SHANNEN
[2016-11-04 13:13] VITALS: BP 172/75; PULSE 61
--- NOTE | 2016-11-04 13:19 | P.PN ---
Subjective This is an 89-year-old female who is admitted for pneumonia and urinary tract infection. Orthopedics is consulted to evaluate the patient's left shoulder pain. Patient states she has had shoulder pain that has persisted after a fall 6 or 7 months ago. Patient states she was evaluated at the time of fall and there was no fracture or injury to the left shoulder. Family who is also present in the room states that she has not complained much about the left shoulder pain until the last 2 or 3 days. Patient denies any new injury. Patient states she has pain with lifting the left upper extremity and needs the help of her right hand. Patient states that heating pad to the left shoulder has helped in the past. Patient denies any swelling, erythema or warmth to the left shoulder. Patient denies any history of neck pain, radiculopathy, numbness , weakness or tingling. On 11/02/2016 patient is lying in bed comfortably she is complaining of shoulder pain otherwise no complaints at this time she has some dry cough she was and able to produce a sputum sample 11/04/2016 patient is complaining of migraine headache she is complaining of nausea no vomiting today. Patient was cleared by cardiology and pulmonary for discharge. However due to recurrent episodes of vomiting she is scheduled for an EGD in a.m. tomorrow by gastroenterology. Will follow closely possible discharge to home tomorrow. Objective - Vital Signs Vital signs: Vital Signs Temp 96 F L 11/04/16 07:00 Pulse 61 11/04/16 08:00 Resp 20 11/04/16 07:00 BP 172/75 11/04/16 08:00 Pulse Ox 95 11/04/16 07:00 Intake & Output 11/03/16 11/04/16 11/04/16 18:59 06:59 18:59 Intake Total 640 Balance 640 Weight 95.5 kg Intake: IV 50 Piperacillin-Tazobactam 3 50 .375 gm In Dextrose/Water 1 50ml.bag @ 12.5 mls/hr IVPB Q8HR [facility] Rx#: [id number] Oral 590 Other: Voiding Method Toilet Toilet Toilet Incontinent Incontinent Incontinent # Voids 3 3 # Bowel Movements 1 - Exam In general patient is alert and oriented 3 in no apparent distress HEENT head normocephalic and atraumatic Neck is supple no JVD no goiter no lymphadenopathy Chest exam reveals a few scattered crackles no wheezing Cardiac exam reveals regular heart sounds S1 and S2 no gallops no murmurs Abdomen is soft, nontender no organomegaly with normal bowel sounds Extremity exam reveals no edema no cyanosis or clubbing - Labs CBC & Chem 7: 11/04/16 07:17 11/04/16 07:17 Labs: Abnormal Lab Results - Last 24 Hours (Table) 11/03/16 11/04/16 11/04/16 Range/Units 07:00 07:17 07:17 RBC 3.28 L (3.80-5.40) m/uL Hgb 10.2 L (11.4-16.0) gm/dL Hct 32.6 L (34.0-46.0) % Creatinine 1.11 H (0.52-1.04) mg/dL TIBC 191 L (265-497) ug/dL Total Protein 5.8 L (6.3-8.2) g/dL Albumin 2.9 L (3.5-5.0) g/dL Microbiology - Last 24 Hours (Table) 10/31/16 00:30 Blood Culture - Preliminary Blood No Growth after 96 hours Assessment and Plan Plan: 1. Acute mental status changes likely a metabolic encephalopathy possibly related to pneumonia or UTI. Also could be related to her oxygen tank not working appropriately. She was having some hypoxemia with oxygen level dropping into the 80s per family members. Consult social work to make sure patient has working oxygen tank at home 2. Pneumonia: Awaiting final chest x-ray report. Patient currently on Levaquin 3. UTI: Check urine culture. Patient has had recurrent UTIs. Continue Levaquin for now 4. Left shoulder pain. Consult orthopedics. Check shoulder x-ray 5. History of essential hypertension resume blood pressure medications 6. Hyperlipidemia continue statin 7. Hypothyroidism continue Synthroid
--- NOTE | 2016-11-04 13:40 | P.DS ---
Providers Date of admission: 10/31/16 02:18 Expected date of discharge: 11/04/16 Attending physician: Mirta Collins Consults: 10/31/16 14:12 Consult Physician Routine Consulting Provider: Jah Orellana Consult Reason/Comments: left shoulder pain Do you want consulting provider notified?: Yes Primary care physician: Mirta [facility] Course: Diagnoses on discharge: 1. Acute mental status changes likely a metabolic encephalopathy possibly related to pneumonia and UTI. Also could be related to her oxygen tank not working appropriately. She was having some hypoxemia with oxygen level dropping into the 80s per family members. Consult social work to make sure patient has working oxygen tank at home 2. Pneumonia: continue Levaquin 750 mg every 48 hours for 10 more days (5 doses ) 3. UTI: Check urine culture. Patient has had recurrent UTIs. Continue Levaquin as above. 4. Left shoulder pain. Consult orthopedics. Check shoulder x-ray 5. History of essential hypertension resume blood pressure medications 6. Hyperlipidemia continue statin 7. Hypothyroidism continue Synthroid Hospital course: This is an 89-year-old female who is admitted for pneumonia and urinary tract infection. Orthopedics is consulted to evaluate the patient's left shoulder pain. Patient states she has had shoulder pain that has persisted after a fall 6 or 7 months ago. Patient states she was evaluated at the time of fall and there was no fracture or injury to the left shoulder. Family who is also present in the room states that she has not complained much about the left shoulder pain until the last 2 or 3 days. Patient denies any new injury. Patient states she has pain with lifting the left upper extremity and needs the help of her right hand. Patient states that heating pad to the left shoulder has helped in the past. Patient denies any swelling, erythema or warmth to the left shoulder. Patient denies any history of neck pain, radiculopathy, numbness , weakness or tingling. On 11/02/2016 patient is lying in bed comfortably she is complaining of shoulder pain otherwise no complaints at this time she has some dry cough she was and able to produce a sputum sample. On 11/04/2016 patient symptoms improved has less shortness of breath and less cough. Mental status is back to baseline. Patient can be discharged back to [facility]. Patient Condition at Discharge: Poor Plan - Discharge Summary New Discharge Prescriptions: New Famotidine [Pepcid] 20 mg PO DAILY tab Levofloxacin [Levaquin] 750 mg PO Q48H tab Menthol-Zinc Oxide Oint [Risamine Oint] 1 applic TOPICAL DAILY dose Continue Levothyroxine Sodium [Synthroid] 75 mcg PO DAILY@0600 Atorvastatin [Lipitor] 20 mg PO HS Risedronate Sodium [Actonel] 150 mg PO Q28D hydrALAZINE HCL 25 mg PO BID Atenolol 25 mg PO DAILY HYDROcodone/APAP 10-325MG [[facility] 10-325] 1 tab PO Q8HR PRN #40 tab PRN Reason: Pain Magnesium Hydroxide [Milk of Magnesia] 2,400 mg PO DAILY PRN PRN Reason: Constipation Furosemide [Lasix] 20 mg PO DAILY tab ALPRAZolam [Xanax] 0.25 mg PO HS PRN PRN Reason: Insomnia Discharge Medication List Atenolol 25 mg PO DAILY 11/25/14 [History] Atorvastatin [Lipitor] 20 mg PO HS 11/25/14 [History] Levothyroxine Sodium [Synthroid] 75 mcg PO DAILY@0600 11/25/14 [History] Risedronate Sodium [Actonel] 150 mg PO Q28D 11/25/14 [History] hydrALAZINE HCL 25 mg PO BID 11/25/14 [History] HYDROcodone/APAP 10-325MG [[facility] 10-325] 1 tab PO Q8HR PRN #40 tab 02/28/16 [Rx] Magnesium Hydroxide [Milk of Magnesia] 2,400 mg PO DAILY PRN 08/30/16 [History] Furosemide [Lasix] 20 mg PO DAILY tab 09/10/16 [Rx] ALPRAZolam [Xanax] 0.25 mg PO HS PRN 10/31/16 [History] Famotidine [Pepcid] 20 mg PO DAILY tab 11/04/16 [Rx] Levofloxacin [Levaquin] 750 mg PO Q48H tab 11/04/16 [Rx] Menthol-Zinc Oxide Oint [Risamine Oint] 1 applic TOPICAL DAILY dose 11/04/16 [ Rx] Follow up Appointment(s)/Referral(s): Mirta Collins MD [Primary Care Provider] - 1-2 days Jah Orellana DO [Doctor of Osteopathic Medicine] - 1 Week
[2016-11-05] MEDS ORDERED: LEVOFLOXACIN 750 MG TAB PO SCH (06:00)
== END 2016-11-04 15:48 | disposition home or self-care (01) | DRG 190 ==
LOC: EC 23:47 → 5MS5E 10-31 02:18
PROVIDERS: ADMIT Internal Medicine; ATTEND Internal Medicine
DX: J44.0 Chronic obstructive pulmonary disease with (acute) lower respiratory infection (principal); J18.9 Pneumonia, unspecified organism; G93.41 Metabolic encephalopathy; I50.33 Acute on chronic diastolic (congestive) heart failure; N39.0 Urinary tract infection, site not specified; I27.2 Other secondary pulmonary hypertension; I11.0 Hypertensive heart disease with heart failure; Z99.81 Dependence on supplemental oxygen; M41.9 Scoliosis, unspecified; I35.0 Nonrheumatic aortic (valve) stenosis; D64.9 Anemia, unspecified; E78.5 Hyperlipidemia, unspecified; E03.9 Hypothyroidism, unspecified; M81.0 Age-related osteoporosis without current pathological fracture; H91.90 Unspecified hearing loss, unspecified ear; M19.012 Primary osteoarthritis, left shoulder; G43.909 Migraine, unspecified, not intractable, without status migrainosus; H26.9 Unspecified cataract; R09.02 Hypoxemia; Z85.828 Personal history of other malignant neoplasm of skin; Z87.440 Personal history of urinary (tract) infections; Z96.641 Presence of right artificial hip joint; Z79.899 Other long term (current) drug therapy
CPT/HCPCS: 36415; 51701; 70450; 71010; 80053; 81001; 82550; 82553; 82728; 83540; 83550; 83605; 83735; 84484; 85025; 85610; 85730; 87040; 87086; 93005; 94760; 96365; 99285